=== PATIENT | female | born 1950 | race Caucasian/White ===

== ENCOUNTER → 2020-05-30 08:23 | Outpatient (CLI) | payer OTHER, SELFPAY ==
--- NOTE | ~2020-05-30 | MMUS_ITS ---
EXAMINATION: MM diagnostic zurdo BI w noreen, US breast LT complete HISTORY: Probable benign right breast calcifications, six-month follow-up. Screening of left breast. TECHNIQUE: Whole ML, MLO and cc 3-D tomosynthesis images of both breasts and spot Tomosynthesis image s of the right breast were performed and synthetic 2-D images were generated. CAD analysis was submit rex and interpreted. High resolution breast ultrasound was performed. COMPARISON: 10/30/2019 diagnostic right digital mammogram 04/09/2019 diagnostic bilateral digital mammogram 08/24/2018 diagnostic right digital mammogram BREAST PARENCHYMAL COMPOSITION: There are scattered areas of fibroglandular density. FINDINGS: MAMMOGRAPHIC FINDINGS: No suspicious mass or suspicious calcification is noted on the right. No skin thickening or retractio n is evident. On the left there is suggestion of new approximately 4 mm density in the central lower breast on MLO view. ULTRASOUND: There is a 6 x 6.5 x 4 mm multiloculated cystic lesion without internal vascularity or suspicious sha dowing in the subareolar area. This has benign sonographic features. There is an approximately 1.5 x 2 mm probable cyst at 8:00 0.5 cm from nipple. No suspicious mass or shadowing is evident. IMPRESSION: 1. Probable benign findings 2. 6 month diagnostic left mammogram and left breast ultrasound follow-up are recommended. BI-RADS category 3, probably benign findings. Reviewed, dictated and finalized at location A. IMPRESSION: 1. Probable benign findings 2. 6 month diagnostic left mammogram and left breast ultrasound follow-up are r ecommended. BI-RADS category 3, probably benign findings.
== END ==
PROVIDERS: PCP Family Medicine; Visit Provider Family Medicine
DX: R92.8 Other abnormal and inconclusive findings on diagnostic imaging of breast (principal)
CPT/HCPCS: 76641; 77062; 77066; G0279

== ENCOUNTER → 2021-01-30 09:00 | Outpatient (CLI) | payer OTHER, SELFPAY ==
--- NOTE | ~2021-01-30 | CT_ITS ---
EXAMINATION: CT lung screening DATE: 01/30/2021 09:14 INDICATION: Z72.0 - Tobacco use TECHNIQUE: Computed tomography (CT) of the chest was performed without intravenous contrast. Addition al 3D reconstructions utilizing coronal maximum intensity projection (MIP) were performed. Automated exposure control and iterative reconstruction technique were employed. The dose-length product was 54 .66 mGy-cm. COMPARISON: None FINDINGS: Mild emphysema. . Few small calcified pulmonary nodules consistent with old granulomatous disease. 4 mm noncalcified nodule at the superomedial lingula. Mild peripheral reticular opacities with lower jaye ng predominant which could represent atelectasis, minimal pulmonary edema or chronic interstitial fib rosis in either nonspecific interstitial pneumonia (NSIP) or usual interstitial pneumonia (UIP) patte rn. Heart size is normal. Atherosclerotic coronary artery calcifications and aortic valve calcificati on. No pericardial or pleural effusion. A few calcified right hilar and mediastinal lymph nodes along with a small hepatic calcification, all consistent with old granulomatous disease. No pathologically enlarged thoracic lymphadenopathy. Atherosclerotic thoracic aorta is normal in caliber. Chronic T12 compression fracture with one third anterior vertebral body height loss. Mild thoracic spondylosis. IMPRESSION: 1. Lung-RADS category 2: Benign appearance or behavior. Continue annual screening with noncontrast lo w-dose chest CT in 12 months. 2. Mild emphysema. 3. Mild peripheral reticular opacities with basilar predominance which could represent mild atelectas is, pulmonary edema or chronic interstitial fibrosis. Reviewed, dictated and finalized at location A. IMPRESSION: 1. Lung-RADS category 2: Benign appearance or behavior. Continue annual screeni ng with noncontrast low-dose chest CT in 12 months. 2. Mild emphysema. 3. Mild peripheral reticular opacities with basilar predominance which could re present mild atelectasis, pulmonary edema or chronic interstitial fibrosis.
== END ==
PROVIDERS: Visit Provider Family Medicine
DX: Z85.3 Personal history of malignant neoplasm of breast (principal); J43.9 Emphysema, unspecified; R91.8 Other nonspecific abnormal finding of lung field; Z87.891 Personal history of nicotine dependence
CPT/HCPCS: 71271

== ENCOUNTER → 2021-02-02 08:41 | Outpatient (CLI) | payer OTHER, SELFPAY ==
--- NOTE | ~2021-02-02 | MMUS_ITS ---
EXAMINATION: MM diagnostic zurdo BI w noreen, US breast LT limited HISTORY: Screening of right breast. Six-month follow-up of 05/30/2020 left breast diagnostic mammograp hic and sonographic findings TECHNIQUE: Bilateral ML, MLO and craniocaudal full field and left spot 3-D tomosynthesis images were performed and synthetic 2-D images were generated. CAD analysis was submitted and interpreted. High r esolution targeted left breast ultrasound was performed. COMPARISON: 05/30/2020 bilateral diagnostic digital mammogram and complete left breast ultrasound BREAST PARENCHYMAL COMPOSITION: There are scattered areas of fibroglandular density. FINDINGS: MAMMOGRAPHIC FINDINGS: There is stable fibroglandular asymmetry. No interval suspicious mass or architectural distortion, malignant calcification, skin thickening or retraction since prior examinations is evident. ULTRASOUND: The previously reported subareolar multiloculated cystic lesion is no longer evident. Diminished size of sonolucency at 8:00 0.5 cm from nipple, currently measuring approximately 1 x 1.4 mm dimension. IMPRESSION: 1. No mammographic evidence of malignancy 2. Routine annual mammographic screening is recommended. BI-RADS Category 2: Benign finding(s). Reviewed, dictated and finalized at location A. IMPRESSION: 1. No mammographic evidence of malignancy 2. Routine annual mammographic screening is recommended. BI-RADS Category 2: Benign finding(s).
== END ==
PROVIDERS: PCP Family Medicine; Visit Provider Physician Assistant
DX: R92.8 Other abnormal and inconclusive findings on diagnostic imaging of breast (principal)
CPT/HCPCS: 76642; 77062; 77066; G0279

== ENCOUNTER 2021-05-18 01:20 | Day surgery (SDC) | payer OTHER, SELFPAY ==
[2021-04-29 14:39] VITALS: BMI 23.0
[2021-05-18 10:12] VITALS: BP 152/68; PULSE 82; RESP 17; TEMP 36.2; O2SAT 96; BMI 24.7
[2021-05-18] MEDS: LACTATED RINGERS 1,000 ML 150 ML IV CONT (10:15)
--- NOTE | 2021-05-18 10:42 | WPDANESEPPF ---
Anes - Initial Pre Proc Eval Procedure: Operation Date: 05/18/21 11:45 Proposed Procedures p Screening Colonoscopy - Zack Plascencia MD Date/Time: 05/18/21 10:42 Surgeon: Zack Plascencia MD Pre Op Diagnosis: hx of colon polyps Patient Data Age: 70 Gender: F Height: 1.6 m Weight: 63.2 kg Last Vital Signs Temp 97.2 F L 05/18/21 10:12 Pulse 82 05/18/21 10:12 Resp 17 05/18/21 10:12 BP 152/68 H 05/18/21 10:12 Pulse Ox 96 05/18/21 10:12 Allergies Allergy/AdvReac Type Severity Reaction Status Date / Time codeine AdvReac Mild NAUSEA/VOMI Verified 05/18/21 10:11 TING Home Medications Medication Instructions Recorded Confirmed Type tizanidine 2 mg tablet 2 mg PO TID PRN #60 tablet 10/27/20 05/18/21 Rx lisinopril 10 mg tablet 10 mg PO DAILY #90 tablet 04/17/21 05/18/21 Rx Patient hx anesthesia problems: none Family hx anesthesia problems: none PMFSH Past Medical History Medical History (Updated 01/23/21 @ 21:53 by Mery Cantrell MD) Benign essential HTN Breast CA Breast cancer screening Family history of radiation therapy YOBANI (generalized anxiety disorder) Hx antineoplastic chemotherapy Hx of adenomatous polyp of colon Osteoporosis Shingles rash Surgical History Surgical History H/O lumpectomy Hx of colonoscopy with polypectomy Family History Family History Mother Patient's mother is in good health Hypertension Family history of malignant neoplasm of brain Sibling Patient's sister is in good health Patient's brother is in good health Family history of alcoholism, Onset Age: 53 Family history of dementia Family history of throat cancer Social History Social History (Updated 01/23/21 @ 10:37 by Clarita Carlin) Social History: Smoking packs per day: 1 Smoking cigarettes per day: 20.0 Years smoked: 40 Smoking pack-years: 40.00 Smoking status: Current every day smoker Tobacco type: cigarettes Second hand tobacco smoke exposure: Yes Additional smoking assessment comments: Pt only smokes a pack a week. Alcohol intake: current Alcohol use details: OCCATIONALLY Substance use: never Substance use type: does not use Living arrangements: with family Gender identity (if verbalized by the patient): Female Spiritual care concerns: No Anes - Eval Final PreProcedure Day of Procedure 05/18/21 10:42 Patient weight: normal Heart: regular rate and rhythm Lungs: clear to auscultation Airway: Mallampati scale class II Neurological: alert and oriented Last oral intake: >/= 8 hours ASA classification: III Emergent: no Anesthetic plan: proceed Anesthesia type and monitoring: general GIVS and standard monitoring Informed Consent: The patient's anesthetic plan and its attendant risks and benefits were discussed with the patient/family/POA. Questions were solicited and answers provided to the satisfaction of the patient/family/POA.
--- NOTE | 2021-05-18 10:59 | PM.HPGS ---
History of Present Illness History of Present Illness Consent: Risks, benefits, and alternatives have been discussed and questions answered. Patient agrees to proceed with procedure. Chief complaint: hx of colon polyps Narrative: Medina Lucas is a 70 year old female with colon polyps 2019, she is due to have another colonoscopy Review of Systems Constitutional: Constitutional: Denies headache(s) and Denies weakness Eyes: Eyes: Denies blurry vision ENT: Reports Normal hearing present, Denies headache(s) and Denies neck pain Cardiovascular: Cardiovascular: Denies chest pain and Denies dyspnea Respiratory: Respiratory: Denies dyspnea Gastrointestinal: Gastrointestinal: Reports no additional gastrointestinal complaints Genitourinary: Genitourinary: Denies dysuria Musculoskeletal: Musculoskeletal: Denies neck pain Integumentary/Breasts: Skin/Breast: Denies dry skin Neurologic: Reports Normal hearing present, Denies headache(s) and Denies weakness Psychiatric: Psychiatric: Denies anxiety Endocrine: Endocrine: Denies change in body appearance Hematologic/Lymphatic: Hematologic/Lymphatic: Denies easy bleeding Allergic/Immunologic: Allergic/Immunologic: Denies urticaria PMFSH Past Medical History Medical History (Updated 01/23/21 @ 21:53 by Mery Cantrell MD) Benign essential HTN Breast CA Breast cancer screening Family history of radiation therapy YOBANI (generalized anxiety disorder) Hx antineoplastic chemotherapy Hx of adenomatous polyp of colon Osteoporosis Shingles rash Surgical History Surgical History H/O lumpectomy Hx of colonoscopy with polypectomy Family History Family History Mother Patient's mother is in good health Hypertension Family history of malignant neoplasm of brain Sibling Patient's sister is in good health Patient's brother is in good health Family history of alcoholism, Onset Age: 53 Family history of dementia Family history of throat cancer Social History Social History (Updated 01/23/21 @ 10:37 by Clarita Carlin) Social History: Smoking packs per day: 1 Smoking cigarettes per day: 20.0 Years smoked: 40 Smoking pack-years: 40.00 Smoking status: Current every day smoker Tobacco type: cigarettes Second hand tobacco smoke exposure: Yes Additional smoking assessment comments: Pt only smokes a pack a week. Alcohol intake: current Alcohol use details: OCCATIONALLY Substance use: never Substance use type: does not use Living arrangements: with family Gender identity (if verbalized by the patient): Female Spiritual care concerns: No Meds Home Medications and Allergies Home Medications Medication Instructions Recorded Confirmed Type tizanidine 2 mg tablet 2 mg PO TID PRN #60 tablet 10/27/20 05/18/21 Rx lisinopril 10 mg tablet 10 mg PO DAILY #90 tablet 04/17/21 05/18/21 Rx Allergies Allergy/AdvReac Type Severity Reaction Status Date / Time codeine AdvReac Mild NAUSEA/VOMI Verified 05/18/21 10:11 TING Vital Signs Vital Signs - 24 hr 05/18/21 10:12 Temperature 97.2 F L Pulse Rate 82 Respiratory Rate 17 Blood Pressure 152/68 H Pulse Oximetry 96 Exam Const: General: comfortable and no acute distress HENMT: General nose exam: Normal nares present Eyes: General: appearance normal, both eyes and all related structures Neck: Neck: no JVD Resp: Auscultation: clear to auscultation bilaterally Cardio: Rate: regular rate Rhythm: regular rhythm GI: Inspection: non-distended GI Palp: Yes Soft to palpation Skin: General skin exam: normal color Neuro: General: gait normal Speech: normal speech Extrem: General: normal to inspection Psych: Mental Status: mental status grossly normal Assessment and Plan Assessment and plan (1) Colon polyp: Code(s): K63.5 -
[2021-05-18 11:21] VITALS: BP 92/61; PULSE 66; RESP 11; O2SAT 97
[2021-05-18 11:31] VITALS: BP 94/59; PULSE 66; RESP 12; O2SAT 95
[2021-05-18 11:41] VITALS: BP 145/63; PULSE 61; RESP 17; O2SAT 99
== END 2021-05-18 11:57 | disposition home or self-care (01) ==
PROVIDERS: PCP Family Medicine; Visit Provider Internal Medicine Gastroenterology
PROC: 0DJD8ZZ Inspection of Lower Intestinal Tract, Via Natural or Artificial Opening Endoscopic (ICD-10-PCS; CPT 45378; principal; 2021-05-18 11:45)
DX: Z12.11 Encounter for screening for malignant neoplasm of colon (principal); D12.0 Benign neoplasm of cecum; K64.8 Other hemorrhoids; I10 Essential (primary) hypertension; M81.0 Age-related osteoporosis without current pathological fracture; F41.1 Generalized anxiety disorder; F17.210 Nicotine dependence, cigarettes, uncomplicated; Z85.3 Personal history of malignant neoplasm of breast
CPT/HCPCS: 45385; 88305; J2704; J7120

== ENCOUNTER 2021-07-24 08:36 | Outpatient (CLI) | payer OTHER, SELFPAY ==
--- NOTE | ~2021-07-24 | XR_ITS ---
XR knee LT 3V 07/24/2021 08:59 Indication: Left knee pain Procedure: 3 views left knee Comparison: No prior studies for comparison. Findings: There is mild tricompartment osteoarthritis. No fracture or traumatic malalignment. There a re vascular calcifications. No focal soft tissue abnormality. No joint effusion. No foreign bodies. Impression: 1: Mild osteoarthritis of the left knee. Reviewed, dictated and finalized at location A. Impression: 1: Mild osteoarthritis of the left knee.
== END 2021-07-24 08:37 | disposition home or self-care (01) ==
LOC: ANHIMG 08:40
PROVIDERS: PCP Family Medicine; Visit Provider Family Medicine
DX: M17.12 Unilateral primary osteoarthritis, left knee (principal)
CPT/HCPCS: 73562

== ENCOUNTER 2021-08-07 10:28 | Outpatient (CLI) | payer OTHER, SELFPAY ==
--- NOTE | ~2021-08-07 | US_ITS ---
EXAMINATION: US carotid duplex BI DATE: 08/07/2021 11:09 INDICATION: Carotid atherosclerosis. Other specified symptoms/signs involving the circulatory system. TECHNIQUE: Grayscale, color Doppler, and pulsed Doppler images of the cervical carotid arteries were obtained. The degree of vessel stenosis is placed in one of the following categories: normal, <50%, 5 0-69%, >=70% but less than near-occlusion, near-occlusion, or total occlusion. Note that percent sten osis relative to normal distal artery lumen diameter is indirectly measured from velocity measurement s as described by Chance, et al. Radiology 2003; 229:340-346. COMPARISON: None. FINDINGS: RIGHT: The right common carotid artery (CCA) peak systolic velocity (PSV) is 89 cm/s. The right internal car otid artery (ICA) PSV is 104 cm/s. The right ICA end-diastolic velocity (EDV) is 22 cm/s. The right I CA/CCA PSV ratio is 1.2. Grayscale and color Doppler images yield an estimate of <50% diameter reduct ion from plaque in the ICA. The external carotid artery (ECA) PSV is 112 cm/s. There is antegrade nathaniel w in the right vertebral artery. LEFT: The left CCA PSV is 110 cm/s. The left ICA PSV is 63 cm/s. The left ICA EDV is 27 cm/s. The left ICA/ CCA PSV ratio is 0.6. Grayscale and color Doppler images yield an estimate of <50% diameter reduction from plaque in the ICA. The ECA PSV is 70 cm/s. There is antegrade flow in the left vertebral artery . IMPRESSION: 1. <50% stenosis in the right internal carotid artery. 2. <50% stenosis in the left internal carotid artery. Reviewed, dictated and finalized at location A.
== END 2021-08-07 10:29 | disposition home or self-care (01) ==
LOC: ANHIMG 10:33
PROVIDERS: PCP Family Medicine; Visit Provider Family Medicine
DX: R09.89 Other specified symptoms and signs involving the circulatory and respiratory systems (principal); I65.23 Occlusion and stenosis of bilateral carotid arteries
CPT/HCPCS: 93880

== ENCOUNTER 2021-08-28 11:04 | Outpatient (CLI) | payer OTHER, SELFPAY ==
--- NOTE | 2021-08-31 13:25 | WPDPFTINT ---
PFT Procedure Performed PFT Procedure Performed Plethysmography (Lung Vol) Diffusing Cap (DLCO) Flow Vol Loop Spirometry w/o Bronchodil PFT Interpretation Lung volumes were measured with the body plethysmography method. The lung volumes are unremarkable. Spirometry showed normal FVC, normal FEV1, diminished mid expiratory flow rates at 35% predicted and a diminished FEV1 to FVC ratio 59%, indicative of mild obstructive airway disease. No post bronchodilator study was carried out. The flow volume loop is consistent with obstructive airway disease. Lung diffusion capacity is moderately reduced at 52% predicted. Impression: Mild obstructive airway disease in the form of small airway disease. Moderately reduced lung diffusion capacity.
--- NOTE | 2021-09-02 14:07 | P.PCNPFT_ITS ---
PFT Procedure Performed PFT Procedure Performed Plethysmography (Lung Vol) Diffusing Cap (DLCO) Flow Vol Loop Spirometry w/o Bronchodil PFT Interpretation Lung volumes were measured with the body plethysmography method. The lung volumes are unremarkable. Spirometry showed normal FVC, normal FEV1 but diminished mid expiratory flow rates at 35% predicted consistent with small airway disease. The FEV1 FVC was also diminished at 59% predicted. Lung diffusion capacity is moderately reduced at 52% predicted. No post b ronchodilator study carried out. The flow volume loop is also consistent with small airway disease. Impression: Mild obstructive airway disease in the form of small airway disease. Moderately reduced lung diffusion capacity.
== END 2021-08-28 11:05 | disposition home or self-care (01) ==
LOC: ANHPFT 11:04
PROVIDERS: PCP Family Medicine; Visit Provider Family Medicine
DX: J84.9 Interstitial pulmonary disease, unspecified (principal); Z72.0 Tobacco use; R94.2 Abnormal results of pulmonary function studies
CPT/HCPCS: 94375; 94726; 94729

== ENCOUNTER → 2022-04-27 15:30 | Outpatient (CLI) | payer OTHER, SELFPAY ==
--- NOTE | ~2022-04-27 | MM_ITS ---
EXAMINATION: MM screening [facility] BI w noreen HISTORY: Screening TECHNIQUE: Craniocaudal and mediolateral oblique 3-D tomosynthesis images were obtained and synthetic 2-D images were generated. CAD analysis was submitted and interpreted. COMPARISON: Comparison to multiple prior studies sequentially, with oldest reviewed study dated 08/01. BREAST PARENCHYMAL COMPOSITION: There are scattered areas of fibroglandular density. FINDINGS: There is no evidence of suspicious mass, calcification, or architectural distortion to sugg est malignancy in either breast. There has been no suspicious interval change. IMPRESSION: 1. No mammographic evidence of malignancy. 2. Recommend routine screening mammography in one year. BI-RADS Category 1: Negative Reviewed, dictated and finalized at location A.
== END ==
PROVIDERS: PCP Family Medicine; Visit Provider Family Medicine
DX: Z12.31 Encounter for screening mammogram for malignant neoplasm of breast (principal)
CPT/HCPCS: 77063; 77067

== ENCOUNTER 2022-07-26 08:08 | Outpatient (CLI) | payer OTHER, SELFPAY ==
--- NOTE | ~2022-07-26 | US_ITS ---
EXAMINATION: US venous doppler [facility] DATE: 07/26/2022 09:35 INDICATION: Bilateral lower limb pain TECHNIQUE: Garrison scale images without and with compression and Doppler images of the bilateral lower e xtremity veins were obtained. COMPARISON: None FINDINGS: The right common femoral vein, profunda femoral vein, femoral vein, popliteal vein, peroneal trunk, p osterior tibial veins, and greater saphenous vein are patent. The left common femoral vein, profunda femoral vein, femoral vein, popliteal vein, peroneal trunk, po sterior tibial veins, and greater saphenous vein are patent. IMPRESSION: 1. Patent bilateral lower extremity veins. No evidence of deep venous thrombosis. Reviewed, dictated and finalized at location A. IMPRESSION: 1. Patent bilateral lower extremity veins. No evidence of deep venous thrombosi s.
--- NOTE | ~2022-07-26 | CT_ITS ---
EXAMINATION: CT lung screening DATE: 07/26/2022 08:32 INDICATION: Lung cancer screening. History of tobacco dependence. TECHNIQUE: Computed tomography (CT) of the chest was performed without intravenous contrast. The dose -length product was 67.93 mGy-cm. Automated exposure control and iterative reconstruction technique w ere employed. Automated exposure control and iterative reconstruction technique were employed. COMPARISON: CT dated 01/30/2021 FINDINGS: Stable 4 mm lingular nodule. There are a few scattered calcified granulomas. There is emphy sema. There is chronic interstitial lung disease with a pattern consistent with nonspecific interstit ial pneumonia. No new pulmonary nodules or masses. No endobronchial lesions. No pneumothorax. No foca l airspace consolidation. There are calcified mediastinal lymph nodes, consistent with chronic granul omatous disease. There is a chronic wedge compression deformity of T12. There is atherosclerosis of t he aorta and coronary arteries. IMPRESSION: 1. Lung-RADS category 2: Benign appearance or behavior. Continue annual screening with noncontrast lo w-dose chest CT in 12 months. Reviewed, dictated and finalized at location B. IMPRESSION: 1. Lung-RADS category 2: Benign appearance or behavior. Continue annual screeni ng with noncontrast low-dose chest CT in 12 months.
--- NOTE | ~2022-07-26 | US_ITS ---
US art doppler w press LE BI INDICATION: Leg pain TECHNIQUE: Segmental pressures and plethysmographic and Doppler waveforms of the brachial and lower e xtremity arteries were obtained. COMPARISON: None. FINDINGS: Right and left brachial artery pressures of 133 mm Hg and 132 mm Hg, respectively, are concordant (no rmal difference <= 30 mmHg). The right ankle-brachial index (BYRON) is 1.06 (normal >= 0.9-1.0). The right great toe-brachial index (TBI) is 0.72 (normal >= 0.60). The left BYRON is 1.11. The left TBI is 0.71. IMPRESSION: 1. Normal bilateral ankle and toe brachial indices.. Reviewed, dictated and finalized at location B.
== END 2022-07-26 08:09 | disposition home or self-care (01) ==
PROVIDERS: PCP Family Medicine; Visit Provider Nurse Practitioner Gerontology
DX: Z12.2 Encounter for screening for malignant neoplasm of respiratory organs (principal); Z87.891 Personal history of nicotine dependence; M79.89 Other specified soft tissue disorders
CPT/HCPCS: 71271; 93923; 93970

== ENCOUNTER → 2022-08-09 14:56 | Outpatient (CLI) | payer OTHER, SELFPAY ==
--- NOTE | ~2022-08-09 | DEXA_ITS ---
Bone Density Report Name: DEBBIE CHASE Age: 71 Sex: Female Ethnicity: White Date of : 1950 Indication: postmenopausal; screening for osteoporosis; height loss; prior fracture; Referring Provider: FISH NGUYỄN Study: Bone densitometry was performed. Exam Date: August 09, 2022 Accession number: [id number] Bone Density: Region BMD T-score Z-score Classification AP Spine (L1-L4) 0.807 -2.2 0.1 Osteopenia Femoral Neck (Left) 0.492 -3.2 -1.3 Osteoporosis Total Hip (Left) 0.633 -2.5 -0.9 Osteoporosis Femoral Neck (Right) 0.594 -2.3 -0.3 Osteopenia Total Hip (Right) 0.667 -2.3 -0.6 Osteopenia Total Hip Mean 0.650 -2.4 -0.8 Osteopenia World Health Organization criteria for BMD impression classify patients as: Normal (T-score at or above -1.0), Osteopenia (T-score between -1.0 and -2.5), or Osteoporosis (T-score at or below -2.5). 10-year Fracture Risk: FRAX not reported because: Some T-score for Spine Total or Hip Total or Femoral Neck at or below -2.5 Clinical Information Provided by Patient: Has had a low trauma fracture Smokes Has used the following medications: Vitamin D, Calcium Patient maximum height was 64.5 Menopause Age: 36 No regular weight bearing exercise Does not regularly consume dairy products Drinks caffeinated beverages Onset of menses at age 15 Number of children 1 Impression: The patient has established osteoporosis, based on the Left Femoral Neck T-score and the existence of a prior fracture. The patient has risk factors, including: smoking, previous fracture. Discussion: HIGH RISK OF FRACTURE. BONE DENSITY IS UNDESIRABLY LOW AT ONE OR MORE SKELETAL SITES, CONSISTENT WITH POSTMENOPAUSAL OSTEOPOROSIS. This patient's lowest T-score, in a patient who has previously fractured, meets the World Health Organization's (WHO) criteria for severe osteoporosis. In untreated patients, the risk of osteoporotic fracture increases approximately two-fold for each 1.0 SD decrease in T-score. Low bone density is not the only risk factor for fracture; also consider factors such as patient's age, frailty or poor health, risk of falling, risk of injury, previous osteoporotic fracture, family history of osteoporosis, cigarette smoking, low body weight, etc. Not everyone with low bone mineral density has osteoporosis; osteomalacia and other metabolic bone disorders should also be considered. Patients who have osteoporosis should be evaluated for specific diseases and conditions (secondary causes) that may cause or contribute to bone loss. The [place] [employer]ocrinologists (AACE) and National Osteoporosis Foundation (NOF) recommend pharmacologic intervention for all postmenopausal women whose T-score is in this range. The patient should follow a healthful lifestyle (good nutrition with
== END ==
PROVIDERS: PCP Family Medicine; Visit Provider Nurse Practitioner Gerontology
DX: Z78.0 Asymptomatic menopausal state (principal); M85.88 Other specified disorders of bone density and structure, other site; M81.0 Age-related osteoporosis without current pathological fracture; M85.851 Other specified disorders of bone density and structure, right thigh
CPT/HCPCS: 77080

== ENCOUNTER 2022-09-28 08:25 | Outpatient (CLI) | payer OTHER, SELFPAY ==
[2022-09-28 09:27] LABS: Creatine Kinase 189 U/L (30-135)
[2022-09-28 09:30] LABS: Rheumatoid Factor < 8.6 IU/ML (<12)
[2022-09-30 13:11] LABS: ANA Cascade Screen Negative (Negative)
[2022-09-30 21:13] LABS: Anti Cyclic Citrullinated Pept <16 Units (<20)
[2022-10-02 04:07] LABS: Aldolase 5.1 U/L (<=8.1)
[2022-10-02 21:12] LABS: ANCA Screen Negative (Negative)
== END 2022-09-28 08:26 | disposition home or self-care (01) ==
LOC: ANHLAB 08:27
PROVIDERS: PCP Family Medicine; Visit Provider Internal Medicine Pulmonary Disease
DX: J84.9 Interstitial pulmonary disease, unspecified (principal); J98.4 Other disorders of lung
CPT/HCPCS: 36415; 82085; 82104; 82550; 86036; 86038; 86200; 86331; 86430; 86606; 86609

== ENCOUNTER 2022-10-29 07:53 | Outpatient (CLI) | payer OTHER, SELFPAY ==
--- NOTE | 2022-10-29 12:54 | WPDPFTINT ---
PFT Procedure Performed PFT Procedure Performed Spirometry with Pre/Post Bronchodilator Plethysmography (Lung Vol) Diffusing Cap (DLCO) Flow Vol Loop PFT Interpretation Lung volumes were measured with the body plethysmography method. Lung volumes are unremarkable. Spirometry showed normal FVC, normal FEV1 but diminished mid expiratory flow rates at 38% predicted which in conjunction with diminished FEV1 to FVC ratio of 60% is indicative of mild obstructive airway disease. Following administration of a bronchodilator there was no significant increase in expiratory flow rates. Lung diffusion capacity is moderately reduced at 54% predicted. Flow volume loop is consistent with obstructive airway disease. Impression: Mild obstructive airway disease primarily in the form of small airway disease with no response to bronchodilators on this testing. Moderately reduced lung diffusion capacity.
--- NOTE | 2022-10-29 12:56 | WPDSIXMINUTE ---
Six Minute Walk Procedure Procedure Performed Pulmonary Stress Test (6 min walk) Six Minute Walk Six Minute Walk: this 6 minute walk test was carried out with the patient breathing ambient air. The pre-walk oxyhemoglobin saturation was 95%. The patient walked approximately 274 m with no stops during testing. During the walk the oxyhemoglobin saturation remained 90% or higher. The perceived dyspnea on the Luz Maria scale at baseline was 0 and increased to 4 at the end of testing. Impression: No evidence of clinically significant oxyhemoglobin desaturation on this testing.
== END 2022-10-29 07:54 | disposition home or self-care (01) ==
PROVIDERS: PCP Family Medicine; Visit Provider Internal Medicine Pulmonary Disease
DX: R06.00 Dyspnea, unspecified (principal); J40 Bronchitis, not specified as acute or chronic; Z72.0 Tobacco use; R94.2 Abnormal results of pulmonary function studies
CPT/HCPCS: 94060; 94618; 94726; 94729

== ENCOUNTER 2023-06-07 07:56 | Outpatient (CLI) | payer OTHER, SELFPAY ==
--- NOTE | ~2023-06-07 | CT_ITS ---
EXAMINATION:CT chest high resolution wo sd DATE: 06/07/2023 09:37 INDICATION: Interstitial lung disease. TECHNIQUE: Computed tomography (CT) of the chest was performed without intravenous contrast. Automate d exposure control and iterative reconstruction technique were employed. The dose-length product (DLP ) was 122.66 mGy-cm. COMPARISON: Chest CT 07/26/2022 FINDINGS: There is mild scarring at the lung apices. There is moderate emphysema. There is peripheral septal thickening in the lungs with multiple areas of honeycombing. There is a 1.4 cm nodule in righ t upper lobe. There is a new 6 mm nodule in right middle lobe. A calcified right lung nodule and calc ified right hilar and mediastinal lymph nodes are consistent with old granulomatous disease. No pleur al effusion. The heart size is normal. There are coronary artery calcifications. No pericardial effus ion. There is mild thoracic spondylosis. There is a chronic compression fracture of T12. IMPRESSION: 1. Worsened 1.4 cm nodule in right lung upper lobe suspicious for primary bronchogenic carcinoma. CT- guided biopsy is recommended. I called this result to Rosetta Palomino. 2. Diffuse lung disease, likely a combination of moderate emphysema and chronic interstitial lung dis ease in a pattern of usual interstitial pneumonia (UIP). Reviewed, dictated and finalized at location A. IMPRESSION: 1. Worsened 1.4 cm nodule in right lung upper lobe suspicious for primary bronc hogenic carcinoma. CT-guided biopsy is recommended. I called this result to Brigida Palomino. 2. Diffuse lung disease, likely a combination of moderate emphysema and chronic interstitial lung disease in a pattern of usual interstitial pneumonia (UIP).
--- NOTE | 2023-06-08 11:47 | P.PCNPFT_ITS ---
PFT Procedure Performed PFT Procedure Performed Spirometry with Pre/Post Bronchodilator Plethysmography (Lung Vol) Diffusing Cap (DLCO) Flow Vol Loop PFT Interpretation DOS: 06/07/2023 REQUESTING: Fahad George MD REASON FOR TESTING: dyspnea PULMONARY FUNCTION TESTS Repeatability of pre-bronchodilator FEV1 is Grade B. Repeatability of spirometry FEV1 post bronchodilator is Grade A. Spirometry: Pre bronchodilator FEV1 is 1.59 L, 75% predicted, low end of normal. Pre bronchodilator FVC is 2.75 L, 99%, normal. FEV1/FVC is 58%, decreased, consistent with airflow obstruction. After bronchodilator there is a 6% increase in the FEV1, 1.68 L, not statistically significant. There is no c hange in the FVC. Lung volumes: Total lung capacity 4.97 L, 98%, normal. Residual volume 2.22 L, 99%, normal. RV /TLC is 45%, normal. Airway resistance is increased. Diffusion: DLCO is 10.2, 50%, moderately reduced. DLCO /VA is 2.53, 60%, mildly reduced. There is mild correction for alveolar volume. Flow volume loop: There is mild coving of the expiratory limb. IMPRESSION: There is a mild obstructive ventilatory impairment without significant response to bronchodilator, normal lung volumes, moderate diffusion impairment. Lack of response to bronchodilator should not preclude use if clinically indicated. Dina Berry MD
== END 2023-06-07 07:57 | disposition home or self-care (01) ==
PROVIDERS: PCP Family Medicine; Visit Provider Internal Medicine Pulmonary Disease
DX: J84.9 Interstitial pulmonary disease, unspecified (principal); R94.2 Abnormal results of pulmonary function studies; R91.1 Solitary pulmonary nodule
CPT/HCPCS: 71250; 94060; 94726; 94729

== ENCOUNTER 2023-06-16 08:49 | Outpatient (CLI) | payer OTHER, SELFPAY ==
--- NOTE | 2023-06-10 14:03 | PC.NURSE ---
Pre Radiology instructions Report to the [facility] on date 06/16/23 at time __0900 for procedure Time: _1100___ YOU MAY BE MONITORED AT HOSPITAL FOR UP TO 4 HOURS AFTER YOUR PROCEDURE. A visitor will be allowed to accompany the patient into the hospital. You and your visitor will be asked to self-screen and do not enter if you have any COVID symptoms. A mask is OPTIONAL within the hospital. Patients are to have no food or drink 6 hours prior to procedure time Driving will be restricted after the procedure, you must have a person to drive you home. Labs will be drawn in preop area and once reviewed, you will be taken to radiology area for procedure. When the procedure is completed, you will be taken to outpatient where you will be monitored for several hours. You may have one visitor in this area. Other than holding anti-coagulants, patient may take other medication(s) as scheduled. Prior to your appointment date patients are instructed to hold anti-coagulants after discussing with ordering provider to stop. If unable to discontinue anti-coagulants please notify radiologist. ? No aspirin or warfarin (Coumadin) for 7 days prior to the procedure. ? No clopidogrel (Plavix), ticagrelor (Brilinta), prasugrel (Effient) or dabigatran (Pradaxa) for 5 days prior to the procedure. ? No rivaroxaban (Xarelto), apixaban (Eliquis), dipyridamole (Aggrenox or Persantine) or cilostazol (Pletal) for 2 days prior to the procedure. Medications to discontinue per physician: __NONE Date to take last dose: Please leave all valuables, including medications, at home the day of procedure. The hospital will not accept responsibility for valuables. Wear comfortable, loose fitting clothing.? Follow any additional instructions given to you from ordering provider. Telephone instructions given to __PATIENT and asked if any additional questions and then verbalized understanding. Patient advised to call scheduling provider office or registration scheduling [phone] if any additional questions.
[2023-06-10 14:09] VITALS: BMI 23.1
[2023-06-16] VITALS (10 sets, daily range): BP systolic 109–128; BP diastolic 42–64; PULSE 56–73; RESP 16–18; TEMP 36.4; O2SAT 94–100; BMI 23.6
--- NOTE | ~2023-06-16 | CT_ITS ---
EXAMINATION: CT biopsy lung w/imaging DATE: 06/16/2023 11:21 INDICATION: Solitary pulmonary nodule. TECHNIQUE: The procedure including the risks, benefits, and alternatives and possibility of chest tub e placement were discussed with the patient. Risks discussed included infection, approximately 1/20 r isk of symptomatic hemorrhage beyond mild hemoptysis, approximately 1/3 risk of pneumothorax, approxi mately 1/10 risk of pneumothorax severe enough to warrant chest tube placement, and rarely . The patient understood the risks and agreed to proceed. The patient was placed supine. The skin overlyi ng the right lung was prepped and draped in sterile fashion. Anesthetic was administered with 1% lid ocaine subcutaneously. A 19 gauge outer needle was advanced under CT guidance into the lung. The pat ient developed a small pneumothorax. The needle was removed and the entry site was cleaned and dresse d. The mA was adjusted according to patient size. Iterative reconstruction technique was employed. Th e dose-length product was 170.64 mGy-cm. FINDINGS: CT images demonstrate the outer needle tip in the right lung. There is a 1.9 cm nodule in r ight upper lobe. There is a small right pneumothorax. IMPRESSION: 1. Failed CT-guided right lung biopsy. 2. Small right pneumothorax. 3. 1.9 cm nodule in right lung upper lobe suspicious for primary bronchogenic carcinoma. Repeat CT-gu ided biopsy is recommended next week. Reviewed, dictated and finalized at location A. IMPRESSION: 1. Failed CT-guided right lung biopsy. 2. Small right pneumothorax. 3. 1.9 cm nodule in right lung upper lobe suspicious for primary bronchogenic c arcinoma. Repeat CT-guided biopsy is recommended next week.
--- NOTE | ~2023-06-16 | XR_ITS ---
EXAMINATION: XR chest 1V portable DATE: 06/16/2023 12:17 INDICATION: Right lung nodule status post percutaneous biopsy. TECHNIQUE: A single frontal view of the chest was obtained. COMPARISON: Chest single view at 11:16 AM FINDINGS: There is a diffuse interstitial pattern in the lungs with a peripheral predominance. A calc ified right lung nodule and calcified right hilar and mediastinal lymph nodes are consistent with old granulomatous disease. No pleural effusion. There is a small right pneumothorax. The heart size is n ormal. IMPRESSION: 1. Stable small right pneumothorax. 2. Diffuse lung disease, likely a combination of emphysema and chronic interstitial lung disease. Reviewed, dictated and finalized at location A. IMPRESSION: 1. Stable small right pneumothorax. 2. Diffuse lung disease, likely a combination of emphysema and chronic intersti tial lung disease.
--- NOTE | ~2023-06-16 | XR_ITS ---
EXAMINATION: XR chest 1V DATE: 06/16/2023 11:20 INDICATION: Right lung nodule status post percutaneous biopsy. TECHNIQUE: A single frontal view of the chest was obtained. COMPARISON: Chest 2 views 05/19/2007, chest CT 06/07/2023 FINDINGS: There is a peripheral interstitial pattern in the lungs. A calcified right lung nodule and calcified right hilar and mediastinal lymph nodes are consistent with old adenomatous disease. No ple ural effusion. There is a small right pneumothorax. The heart size is normal. IMPRESSION: 1. Small right pneumothorax. 2. Diffuse lung disease, likely a combination of emphysema and chronic interstitial lung disease. Reviewed, dictated and finalized at location A. IMPRESSION: 1. Small right pneumothorax. 2. Diffuse lung disease, likely a combination of emphysema and chronic intersti tial lung disease.
--- NOTE | ~2023-06-16 | XR_ITS ---
EXAMINATION: XR chest 1V portable DATE: 06/16/2023 14:13 INDICATION: Right lung nodule status post percutaneous biopsy. TECHNIQUE: A single frontal view of the chest was obtained. COMPARISON: Chest single view at 12:09 PM FINDINGS: There is a diffuse interstitial pattern with a peripheral predominance. There is a small ri ght pneumothorax. No pleural effusion. The heart size is normal. IMPRESSION: 1. Worsened small right pneumothorax. 2. Diffuse lung disease, likely a combination of emphysema and chronic interstitial lung disease. Reviewed, dictated and finalized at location A. IMPRESSION: 1. Worsened small right pneumothorax. 2. Diffuse lung disease, likely a combination of emphysema and chronic intersti tial lung disease.
--- NOTE | 2023-06-16 09:11 | SUR.PREOP ---
0911- Patient to pre-op chewing gum and this RN requested patient to dispose of gum. Clarified with Dr. Fagan if patient can proceed with procedure after having chewed gum since this AM. Per Dr. Fagan patient can proceed with biopsy procedure.
[2023-06-16 09:53] LABS: Mean Platelet Volume 9.8 fl (7.4-10.4); Platelet Count Result 236 k/mm3 (150-375)
[2023-06-16 10:01] LABS: Prothrombin Time 13.4 Seconds (11.1-14.7)
[2023-06-16] MEDS: ACETAMINOPHEN 500 MG TABLET PO (12:24)
== END 2023-06-16 14:25 | disposition home or self-care (01) ==
PROVIDERS: PCP Family Medicine; Referring Provider Internal Medicine Critical Care Medicine; Visit Provider Radiology Diagnostic Radiology
PROC: BB24ZZZ Computerized Tomography (CT Scan) of Bilateral Lungs (ICD-10-PCS; CPT 32408; principal; 2023-06-16 11:00)
DX: R91.1 Solitary pulmonary nodule (principal); J95.811 Postprocedural pneumothorax
CPT/HCPCS: 32408; 36415; 71045; 85049; 85610; A9270

== ENCOUNTER 2023-06-23 11:35 | Outpatient (CLI) | payer OTHER, SELFPAY ==
--- NOTE | ~2023-06-23 | XR_ITS ---
XR chest 2V 06/23/2023 12:03 Indication: Right pneumothorax Procedure: 2 view chest Comparison: No prior studies for comparison. Findings: Heart size is normal. Stable coarse interstitial infiltrates bilaterally without evidence f or honeycombing of the lung bases, consistent with chronic interstitial fibrosis. No pneumothorax enoch ntified. Heart size normal. No focal pneumonia or pleural effusion. No acute osseous abnormality. Impression: 1: No acute cardiopulmonary disease. No evidence for pneumothorax. 2: Chronic interstitial fibrosis. Reviewed, dictated and finalized at location L. Impression: 1: No acute cardiopulmonary disease. No evidence for pneumothorax. 2: Chronic interstitial fibrosis.
== END 2023-06-23 11:36 | disposition home or self-care (01) ==
PROVIDERS: PCP Family Medicine; Visit Provider Internal Medicine Pulmonary Disease
DX: R91.1 Solitary pulmonary nodule (principal); J84.10 Pulmonary fibrosis, unspecified
CPT/HCPCS: 71046

== ENCOUNTER 2023-06-29 08:45 | Outpatient (CLI) | payer OTHER, SELFPAY ==
[2023-06-27 14:01] VITALS: BMI 23.7
--- NOTE | 2023-06-27 14:01 | PC.NURSE ---
Pre Radiology instructions Report to the outpatient [facility] on date __06/29/23___ at time __0900 for procedure Time: __1100__ YOU MAY BE MONITORED AT HOSPITAL FOR UP TO 4 HOURS AFTER YOUR PROCEDURE. A visitor will be allowed to accompany the patient into the hospital. You and your visitor will be asked to self-screen and do not enter if you have any COVID symptoms. A mask is OPTIONAL within the hospital. Patients are to have no food or drink 6 hours prior to procedure time (0500 AM) Driving will be restricted after the procedure, you must have a person to drive you home. Labs will be drawn in preop area and once reviewed, you will be taken to radiology area for procedure. When the procedure is completed, you will be taken to outpatient where you will be monitored for several hours. You may have one visitor in this area. Other than holding anti-coagulants, patient may take other medication(s) as scheduled. Prior to your appointment date patients are instructed to hold anti-coagulants after discussing with ordering provider to stop. If unable to discontinue anti-coagulants please notify radiologist. ? No aspirin or warfarin (Coumadin) for 7 days prior to the procedure. ? No clopidogrel (Plavix), ticagrelor (Brilinta), prasugrel (Effient) or dabigatran (Pradaxa) for 5 days prior to the procedure. ? No rivaroxaban (Xarelto), apixaban (Eliquis), dipyridamole (Aggrenox or Persantine) or cilostazol (Pletal) for 2 days prior to the procedure. Medications to discontinue per physician: ___NONE Date to take last dose: Please leave all valuables, including medications, at home the day of procedure. The hospital will not accept responsibility for valuables. Wear comfortable, loose fitting clothing.? Follow any additional instructions given to you from ordering provider. Telephone instructions given to ___PT and asked if any additional questions and then verbalized understanding. Patient advised to call scheduling provider office or registration scheduling [phone] if any additional questions.
[2023-06-29] VITALS (10 sets, daily range): BP systolic 94–133; BP diastolic 49–68; PULSE 62–76; RESP 18–20; TEMP 36.5; O2SAT 97–99; BMI 23.3
--- NOTE | ~2023-06-29 | XR_ITS ---
EXAMINATION: XR chest 1V portable DATE: 06/29/2023 15:06 INDICATION: Status post lung biopsy TECHNIQUE: frontal view of the chest was obtained. COMPARISON: Chest radiograph dated 06/29/2023 FINDINGS: No change to perhaps slight decrease in size of a small right pneumothorax. Unchanged coarse reticula r opacities throughout the right lung with peripheral predominance and at the left lower lung zone. N o pleural effusion or left-sided pneumothorax. Interval resolution of the nodular opacity at the righ t midlung zone consistent with resolution of prior pulmonary hemorrhage at the site of the biopsied r ight upper lobe nodule. Calcified nodule right lower lung zone and calcified mediastinal lymph nodes consistent with old granulomatous disease. The cardiomediastinal silhouette is normal. IMPRESSION: 1. No change to perhaps slight decrease in size of a small iatrogenic right pneumothorax. 2. Stable appearance of chronic diffuse lung disease consistent with combination of moderate emphysem a and superimposed UIP pattern chronic interstitial lung disease. Reviewed, dictated and finalized at location A. IMPRESSION: 1. No change to perhaps slight decrease in size of a small iatrogenic right pne umothorax. 2. Stable appearance of chronic diffuse lung disease consistent with combinatio n of moderate emphysema and superimposed UIP pattern chronic interstitial lung disease.
--- NOTE | ~2023-06-29 | XR_ITS ---
EXAMINATION: XR chest 1V portable DATE: 06/29/2023 12:58 INDICATION: Status post percutaneous right lung biopsy TECHNIQUE: frontal view of the chest was obtained. COMPARISON: Chest radiograph dated 06/29/2023 at 11:59 AM FINDINGS: No significant change in a small pneumothorax along the right upper lung with small component at the right costophrenic angle. Again seen is a coarse interstitial pattern with peripheral and lower lung predominance more prominent on the right than the left consistent with combination of UIP pattern chr onic interstitial lung disease superimposed over emphysema. Ill-defined right perihilar opacity corre sponding to the biopsied nodule and small amount of surrounding pulmonary hemorrhage. No pleural effu jurgen or left-sided pneumothorax. The cardiomediastinal silhouette is normal. IMPRESSION: 1. No significant change in a small echogenic right pneumothorax post percutaneous lung biopsy. 2. Small amount of postbiopsy pulmonary hemorrhage surrounding the biopsied right upper lobe nodule. 3. Likely pattern chronic interstitial lung disease superimposed over emphysema which is better appre ciated on prior CT dated 06/07/2023. Reviewed, dictated and finalized at location A. IMPRESSION: 1. No significant change in a small echogenic right pneumothorax post percutane ous lung biopsy. 2. Small amount of postbiopsy pulmonary hemorrhage surrounding the biopsied rig ht upper lobe nodule. 3. Likely pattern chronic interstitial lung disease superimposed over emphysema which is better appreciated on prior CT dated 06/07/2023.
--- NOTE | ~2023-06-29 | CT_ITS ---
EXAMINATION: CT biopsy lung w/imaging DATE: 06/29/2023 12:01 INDICATION: Solitary pulmonary nodule TECHNIQUE: The procedure including the risks and benefits was discussed with the patient. Risks discu ssed included infection, approximately 1/20 risk of symptomatic hemorrhage beyond mild hemoptysis, ap proximately 1/3 risk of pneumothorax, and approximately 1/10 risk of pneumothorax severe enough to wa rrant chest tube placement. The patient understood the risks and agreed to proceed. The patient was p laced supine. The skin overlying the anterolateral mid right chest was prepped and draped in sterile fashion. Anesthetic was administered with 1% lidocaine subcutaneously. A 19 gauge outer needle was advanced under CT guidance to the lesion of interest. A 20 gauge core biopsy needle was then used to obtain 4 core biopsy specimens. The needle was removed and the entry site was cleaned and dressed. There were no immediate complications. The dose-length product was 130.82 mGy-cm. FINDINGS: CT images demonstrate the outer needle tip adjacent to a 1.6 x 1.2 cm right upper lobe nodu le. There is underlying emphysema and UIP pattern chronic interstitial lung disease with coarse septa l line thickening and honeycombing at the periphery of the lungs. IMPRESSION: 1. Successful CT-guided biopsy of a 1.6 x 1.2 cm right upper lobe nodule. Reviewed, dictated and finalized at location A.
--- NOTE | ~2023-06-29 | XR_ITS ---
EXAMINATION: XR chest 1V DATE: 06/29/2023 12:01 INDICATION: Status post right percutaneous lung biopsy TECHNIQUE: frontal view of the chest was obtained. COMPARISON: Chest radiograph dated 06/23/2023 FINDINGS: Again seen are multiple coarse reticular opacities at the periphery of the right lung and at the left lung base consistent with chronic interstitial lung disease which demonstrated usual interstitial pn eumonia (UIP) pattern superimposed over emphysema on the prior CT. Increased size of a nodular with ill-defined margins in the right perihilar region corresponding to t he biopsied nodule and small amount of surrounding pulmonary hemorrhage. Small right apical pneumotho rax. No pleural effusion or left-sided pneumothorax. The cardiomediastinal silhouette is normal. IMPRESSION: 1. Small right apical pneumothorax post percutaneous biopsy of a right upper lobe nodule. 2. Small amount of postbiopsy pulmonary hemorrhage surrounding the biopsied nodule. Reviewed, dictated and finalized at location A. IMPRESSION: 1. Small right apical pneumothorax post percutaneous biopsy of a right upper lo be nodule. 2. Small amount of postbiopsy pulmonary hemorrhage surrounding the biopsied nod ule.
[2023-06-29 09:49] LABS: Mean Platelet Volume 9.8 fl (7.4-10.4); Platelet Count Result 237 k/mm3 (150-375)
[2023-06-29 09:59] LABS: INR 0.9; Prothrombin Time 12.3 Seconds (11.1-14.7)
== END 2023-06-29 15:28 | disposition home or self-care (01) ==
PROVIDERS: PCP Family Medicine; Referring Provider Internal Medicine Pulmonary Disease; Visit Provider Radiology Diagnostic Radiology
PROC: BB24ZZZ Computerized Tomography (CT Scan) of Bilateral Lungs (ICD-10-PCS; CPT 32408; principal; 2023-06-29 11:00)
DX: R91.1 Solitary pulmonary nodule (principal)
CPT/HCPCS: 32408; 36415; 71045; 85049; 85610; 88305; 88342

== ENCOUNTER 2023-07-11 08:27 | Outpatient (CLI) | payer OTHER, SELFPAY ==
[2023-07-11 09:20] LABS: Basophils Percent Auto 0.6 % (0.2-1.2); Eosinophils Absolute Auto 0.1 K/mm3 (0-0.3); Hematocrit 41.4 % (37.0-47.0); Hemoglobin 13.4 g/dL (12.0-15.0); Immature Granulocyte Absolute 0.03 K/mm3 (0.00-0.031); Immature Granulocyte Percent A 0.5 % (0-0.5); Lymphocytes Absolute Auto 1.09 K/mm3 (0.9-3.2); Lymphocytes Percent Auto 17.4 % (18.3-44.2); Mean Corpuscular HGB Conc 32.4 g/dl (32-36); Mean Corpuscular Hemoglobin 31.9 pg (26-34); Mean Corpuscular Volume 98.6 fl (80-100); Mean Platelet Volume 10.2 fl (7.4-10.4); Monocytes Absolute Auto 0.6 K/mm3 (0.1-0.6); Neutrophils Absolute Auto 4.4 K/mm3 (1.3-6.7); Neutrophils Percent Auto 70.5 % (45.5-73.1); Platelet Count Result 254 k/mm3 (150-375); Red Cell Distribution Width 12.9 % (11.5-14.5); White Blood Count 6.3 K/mm3 (4.5-10.0)
[2023-07-11 09:34] LABS: Alanine Aminotransferase 15 U/L (6-35); Albumin Level 4.2 g/dL (3.5-5.1); Alkaline Phosphatase 70 U/L (38-126); Anion Gap 6 mmol/L (8-16); Aspartate Amino Transferase 21 U/L (14-36); Bilirubin,Total 0.5 mg/dL (0.2-1.3); Blood Urea Nitrogen 18 mg/dL (7-17); Calcium 9.5 mg/dL (8.4-10.2); Carbon Dioxide 28 mmol/L (22-30); Chloride 105 mmol/L (98-107); Cholesterol 217 mg/dL (0-200); Estimated Glomerular Filt Rate > 60; Glucose 97 mg/dL (65-110); HDL Direct 68 mg/dL; Potassium 4.2 mmol/L (3.4-5.0); Sodium 139 mmol/L (137-145); Triglycerides 101 mg/dL (<150)
[2023-07-11 09:45] LABS: LDL Cholesterol Direct 98 mg/dL
== END 2023-07-11 08:28 | disposition home or self-care (01) ==
PROVIDERS: PCP Family Medicine; Visit Provider Physician Assistant
DX: I25.10 Atherosclerotic heart disease of native coronary artery without angina pectoris (principal); I10 Essential (primary) hypertension; Z72.0 Tobacco use
CPT/HCPCS: 36415; 80053; 80061; 85025

== ENCOUNTER 2023-08-22 07:46 | Outpatient (CLI) | payer OTHER, SELFPAY ==
--- NOTE | 2023-08-22 10:44 | WPDSIXMINUTE ---
Six Minute Walk Procedure Procedure Performed Pulmonary Stress Test (6 min walk) Six Minute Walk Six Minute Walk: This 6 minute walk test was carried out with the patient breathing ambient air. The pre-walk baseline oxyhemoglobin saturation was 96%. The patient walked 243 m with no stops during testing. During the walk the oxyhemoglobin saturation remained in the range of 92% to 98%. Impression: No evidence of oxyhemoglobin desaturation on this testing.
== END 2023-08-22 07:47 | disposition home or self-care (01) ==
PROVIDERS: PCP Family Medicine
DX: C34.90 Malignant neoplasm of unspecified part of unspecified bronchus or lung (principal)
CPT/HCPCS: 94618

== ENCOUNTER 2023-12-12 09:40 | Outpatient (CLI) | payer OTHER, SELFPAY ==
--- NOTE | ~2023-12-12 | XR_ITS ---
XR chest 2V DATE: 12/12/2023 09:58 INDICATION: Cough TECHNIQUE: PA and lateral views COMPARISON: 06/29/2023 portable AP chest 06/07/2023 CT chest high resolution scan FINDINGS: At least 2.5 cm irregular mass density is noted overlying the right mid lung, suspicious fo r interval growth of previously reported 1.4 cm right lung mass on 06/07/2023 CT chest high-resolution scan. Moderate bilateral hyperinflation, suggesting COPD. Prominently peripheral interstitial changes, like ly due to usual interstitial pneumonia type interstitial pulmonary fibrosis. Normal heart size. Thoracic and abdominal aortic and great vessel calcification. No pleural effusion or pulmonary vascular congestion or pneumothorax is detected. Diffuse osteopenia. Mild loss of height and anterior wedging at T12, chronic, present on 06/07/2023. IMPRESSION: Enlarging right lung mass, highly suspicious for bronchogenic carcinoma Reviewed, dictated and finalized at location B. F [employer] IMPRESSION: Enlarging right lung mass, highly suspicious for bronchogenic carci noma
[2023-12-12 10:12] LABS: Basophils Percent Auto 0.5 % (0.2-1.2); Eosinophils Absolute Auto 0.2 K/mm3 (0-0.3); Eosinophils Percent Auto 3.2 % (0-4.4); Hemoglobin 13.4 g/dL (12.0-15.0); Immature Granulocyte Absolute 0.02 K/mm3 (0.00-0.031); Immature Granulocyte Percent A 0.3 % (0-0.5); Lymphocytes Percent Auto 7.9 % (18.3-44.2); Mean Corpuscular HGB Conc 31.9 g/dl (32-36); Mean Corpuscular Hemoglobin 30.5 pg (26-34); Mean Corpuscular Volume 95.7 fl (80-100); Mean Platelet Volume 9.9 fl (7.4-10.4); Monocytes Absolute Auto 0.6 K/mm3 (0.1-0.6); Monocytes Percent Auto 8.9 % (2.6-8.5); Neutrophils Percent Auto 79.2 % (45.5-73.1); Platelet Count Result 239 k/mm3 (150-375); Red Blood Count 4.39 M/mm3 (4.2-5.4); Red Cell Distribution Width 13.8 % (11.5-14.5); White Blood Count 6.3 K/mm3 (4.5-10.0)
[2023-12-12 10:23] LABS: Alanine Aminotransferase 16 U/L (6-35); Albumin Level 4.3 g/dL (3.5-5.1); Alkaline Phosphatase 81 U/L (38-126); Anion Gap 7 mmol/L (8-16); Aspartate Amino Transferase 23 U/L (14-36); Bilirubin,Total 0.6 mg/dL (0.2-1.3); Blood Urea Nitrogen 24 mg/dL (7-17); Calcium 9.8 mg/dL (8.4-10.2); Carbon Dioxide 23 mmol/L (22-30); Chloride 107 mmol/L (98-107); Estimated Glomerular Filt Rate > 60; Glucose 109 mg/dL (65-110); Potassium 4.5 mmol/L (3.4-5.0); Sodium 137 mmol/L (137-145)
[2023-12-12 10:54] LABS: Influenza A QL RT-PCR Negative (Negative); Influenza B QL RT-PCR Negative (Negative); RSV RNA, RT-PCR Positive (Negative); SARS-CoV-2 RNA PCR Negative (Negative)
[2023-12-12 11:07] LABS: Free T4 Free Thyroxine 1.44 ng/mL (0.78-2.19)
[2023-12-15 07:30] LABS: Triiodothyronine T3 Free 3.8 pg/mL (2.3-4.2)
== END 2023-12-12 09:41 | disposition home or self-care (01) ==
PROVIDERS: PCP Family Medicine; Visit Provider Physician Assistant
DX: C34.90 Malignant neoplasm of unspecified part of unspecified bronchus or lung (principal); I10 Essential (primary) hypertension; R53.83 Other fatigue; B02.9 Zoster without complications; E07.9 Disorder of thyroid, unspecified; J02.9 Acute pharyngitis, unspecified; R05.9 Cough, unspecified
CPT/HCPCS: 36415; 71046; 80053; 84439; 84443; 84481; 85025; 87637

== ENCOUNTER 2023-12-19 10:09 | Inpatient (IN) | payer OTHER, SELFPAY ==
[2023-12-19] VITALS (12 sets, daily range): BP systolic 103–139; BP diastolic 51–91; PULSE 71–98; RESP 16–24; TEMP 36.7–36.8; O2SAT 91–100
--- NOTE | ~2023-12-19 | CT_ITS ---
EXAMINATION: CT brain wo con, CTA brain carotid DATE: 12/19/2023 10:23 INDICATION: Left arm weakness. TECHNIQUE: 1. Computed tomography (CT) of the head was performed without intravenous contrast. Sagittal and cammy nal reconstructions were performed. The mA was adjusted according to patient size. Iterative reconstr uction technique was employed. The dose-length product was 1210.67 mGy-cm. 2. Computed tomographic angiography (CTA) of the head and neck was performed with 100 mL Omnipaque-35 0 intravenous contrast. Multiplanar reconstructions and maximum intensity projection 3D-reconstructio ns of the carotid arteries and of the intracranial arteries were created by the technologist on a [employer] workstation. Automated exposure control and iterative reconstruction technique were employed.Th e dose-length product was 1060.08 mGy-cm. COMPARISON: None. FINDINGS: Carotid arteries: Nonhemodynamically significant atherosclerotic plaque at the normal caliber aortic arch and the great vessels arising from the arch. There is approximately 30% stenosis on the left subclavian artery. Th ere is 40% stenosis of the right carotid bulb relative to normal distal artery lumen diameter (NASCET criteria). There is 30% stenosis of the left carotid bulb relative to normal distal artery lumen aiyana meter. Bilateral vertebral arteries are codominant with no hemodynamically significant stenosis. Mode rate emphysema and some pleural parenchymal scarring at the bilateral upper lungs. Calcified mediasti nal lymph nodes consistent with old granulomatous disease. Severe cervical spondylosis. There are a f ew likely benign subcentimeter thyroid nodules. Head: No acute intracranial hemorrhage or abnormal extra axial fluid collection. There are couple small sally ear hyperdensities in the anterior left cerebellar hemisphere with surrounding decreased attenuation suspicious for thrombosed vessels in setting of acute infarction. There are dystrophic calcifications in the bilateral basal ganglia. There is mild scattered white matter hypoattenuation consistent with chronic small vessel ischemic disease. Ventricles are normal and symmetric. No mass/mass effect. No abnormally enhancing brain lesions on the postcontrast imaging. Moderate mucosal thickening in the bi lateral ethmoid and maxillary sinuses. The orbits are normal. Minimal left mastoid effusion. Intracranial arteries Scattered nonhemodynamically significant atherosclerotic plaque along the bilateral carotid siphons. There is no hemodynamically significant stenosis in the vertebral, basilar and internal carotid arter ies. Vertebral arteries are codominant. There are no aneurysms identified. Both A1 segments are naranjo nt. The bilateral P1 segments are patent but diminutive with the majority of flow to the bilateral po sterior cerebral arteries supplied via a larger caliber posterior communicating arteries. Cerebral a rterial arborization appears symmetric. IMPRESSION: 1. 40% stenosis of the right carotid bulb relative to normal distal artery lumen diameter (NASCET cri teria). 2. 30% stenosis of the left carotid bulb relative to normal distal artery lumen diameter. 3. Suggestion of a small acute infarct in the anterior left cerebellar hemisphere surrounding a tiny linear density suspicious for a small thrombosed artery. Dr. Fagan discussed these findings with Vinod Valdovinos at 10:32 AM. 4. Mild scattered white matter hypoattenuation consistent with chronic small vessel ischemic disease. 5. Moderate emphysema. Reviewed, dictated and finalized at location A. OLITH OPERATOR IMPRESSION: 1. 40% stenosis of the right carotid bulb relative to normal distal artery lume n diameter (NASCET criteria). 2. 30% stenosis of the left carotid bulb relative to normal distal artery lumen diameter. 3.
--- NOTE | ~2023-12-19 | XR_ITS ---
Portable chest x-ray Comparison: 12/12/2023 Clinical History: Back pain, history lung cancer Findings: There is stable hazy opacity right midlung. There is mild bibasilar interstitial prominenc e. Cardiomediastinal silhouette is stable. Bones and soft tissues are unremarkable. Impression: Stable hazy opacity right midlung, indeterminate. This could reflect post therapy/posttreatment low e given history of lung cancer, versus possibly acute pneumonia. Recurrent neoplasm felt to be less l ikely given appearance, though this is not completely excluded. Probable underlying chronic interstitial disease and/or COPD. Reviewed, dictated and finalized at location M. S MARKETING MANAGER Impression: Stable hazy opacity right midlung, indeterminate. This could reflect post thera py/posttreatment change given history of lung cancer, versus possibly acute pne umonia. Recurrent neoplasm felt to be less likely given appearance, though this is not completely excluded. Probable underlying chronic interstitial disease and/or COPD.
--- NOTE | ~2023-12-19 | MR_ITS ---
EXAMINATION: MR brain/brain stem wo/w con DATE: 12/21/2023 08:01 INDICATION: CVA TECHNIQUE: Magnetic resonance imaging (MRI) of the brain and brainstem was performed without intraven ous contrast. Sequences included sagittal and axial T1-weighted SE, axial diffusion-weighted FS SE, a xial T2*-weighted GRE, axial T2-weighted FLAIR Propeller, and axial T2-weighted Propeller. Apparent d iffusion coefficient (ADC) maps were created. COMPARISON: CT dated 12/19/2023. FINDINGS: Brain parenchymal volume is normal for age. There is an acute multicentric infarction of th e right parietal lobe without significant mass effect. No acute intracranial hemorrhage. There are sc attered moderate periventricular and subcortical white matter changes, most likely related to small v essel ischemic disease (microangiopathy). there is a chronic right cerebellar infarction. No enhancin g masses are identified. No mass effect. Study somewhat limited due to or motion artifact. There is m ucosal thickening of the maxillary sinuses. Orbits are symmetric without disconjugate gaze. Structure s of the posterior fossa including 7/8th cranial nerve complexes are normal. Midline sagittal images demonstrate normal corpus callosum and craniovertebral junction. IMPRESSION: 1. Acute focal multicentric right parietal lobe infarction. No significant mass effect. No hemorrhage . 2: Chronic right cerebellar infarction. 3: Chronic age-related findings. 5: Moderate maxillary sinus disease. Reviewed, dictated and finalized at location A. HETIC GEM PRESS OPERATOR IMPRESSION: 1. Acute focal multicentric right parietal lobe infarction. No significant mass effect. No hemorrhage. 2: Chronic right cerebellar infarction. 3: Chronic age-related findings. 5: Moderate maxillary sinus disease.
--- NOTE | ~2023-12-19 | US_ITS ---
EXAMINATION: US carotid duplex BI DATE: 12/20/2023 09:54 INDICATION: Stroke presenting with numbness and tingling and left upper extremity hemiparesis TECHNIQUE: Grayscale, color Doppler, and pulsed Doppler images of the cervical carotid arteries were obtained. The degree of vessel stenosis is placed in one of the following categories: normal, <50%, 5 0-69%, >=70% but less than near-occlusion, near-occlusion, or total occlusion. Note that percent sten osis relative to normal distal artery lumen diameter is indirectly measured from velocity measurement s as described by Chance, et al. Radiology 2003; 229:340-346. COMPARISON: CT dated 12/19/2023 FINDINGS: RIGHT: The right common carotid artery (CCA) peak systolic velocity (PSV) is 77 cm/s. The right internal car otid artery (ICA) PSV is 123 cm/s. The right ICA end-diastolic velocity (EDV) is 23 cm/s. The right I CA/CCA PSV ratio is 1.6. Grayscale and color Doppler images yield an estimate of <50% diameter reduct ion from plaque in the ICA. The external carotid artery (ECA) PSV is 121 cm/s. There is antegrade nathaniel w in the right vertebral artery. LEFT: The left CCA PSV is 109 cm/s. The left ICA PSV is 83 cm/s. The left ICA EDV is 20 cm/s. The left ICA/ CCA PSV ratio is 0.8. Grayscale and color Doppler images yield an estimate of <50% diameter reduction from plaque in the ICA. The ECA PSV is 77 cm/s. There is antegrade flow in the left vertebral artery . IMPRESSION: 1. <50% stenosis in the right internal carotid artery. 2. <50% stenosis in the left internal carotid artery. Reviewed, dictated and finalized at location A. EF MAP MODELER
--- NOTE | 2023-12-19 10:10 | ECG_ITS ---
Measurements Intervals [place] Rate: 88 P: 52 LA: 141 QRS: 9 QRSD: 92 T: 8 QT: 336 QTc: 408 Interpretive Statements SINUS RHYTHM BASELINE ARTIFACT POSSIBLE LEFT ATRIAL ENLARGEMENT [-0.1mV P-WAVE IN V1/V2] POSSIBLE INFERIOR MYOCARDIAL INFARCTION , PROBABLY OLD [30 ms Q WAVE IN II/aVF] BORDERLINE ECG NO PREVIOUS ECG AVAILABLE FOR COMPARISON Electronically Signed On 12-19-2023 18:28:24 PC TECHNICIAN by Ariel Carvalho M.D.
[2023-12-19 10:38] LABS: Glucose Point of Care 117 mg/dl (65-105)
[2023-12-19 10:50] LABS: Basophils Absolute Auto 0.1 K/mm3 (0.0-0.1); Basophils Percent Auto 0.4 % (0.2-1.2); Eosinophils Percent Auto 0.3 % (0-4.4); Hematocrit 39.9 % (37.0-47.0); Hemoglobin 12.7 g/dL (12.0-15.0); Immature Granulocyte Absolute 0.16 K/mm3 (0.00-0.031); Immature Granulocyte Percent A 1.1 % (0-0.5); Lymphocytes Absolute Auto 0.82 K/mm3 (0.9-3.2); Lymphocytes Percent Auto 5.8 % (18.3-44.2); Mean Corpuscular HGB Conc 31.8 g/dl (32-36); Mean Corpuscular Hemoglobin 30.5 pg (26-34); Mean Corpuscular Volume 95.7 fl (80-100); Mean Platelet Volume 9.4 fl (7.4-10.4); Monocytes Absolute Auto 0.5 K/mm3 (0.1-0.6); Monocytes Percent Auto 3.6 % (2.6-8.5); Neutrophils Absolute Auto 12.5 K/mm3 (1.3-6.7); Neutrophils Percent Auto 88.8 % (45.5-73.1); Platelet Count Result 329 k/mm3 (150-375); Red Blood Count 4.17 M/mm3 (4.2-5.4); Red Cell Distribution Width 13.5 % (11.5-14.5); White Blood Count 14.1 K/mm3 (4.5-10.0)
[2023-12-19] MEDS: ONDANSETRON INJ 4 MG/2 ML VIAL IV PUSH (10:53)
[2023-12-19 11:00] LABS: Alanine Aminotransferase 16 U/L (6-35); Alkaline Phosphatase 87 U/L (38-126); Anion Gap 7 mmol/L (8-16); Aspartate Amino Transferase 20 U/L (14-36); Bilirubin,Total 0.5 mg/dL (0.2-1.3); Blood Urea Nitrogen 33 mg/dL (7-17); Calcium 9.2 mg/dL (8.4-10.2); Carbon Dioxide 25 mmol/L (22-30); Chloride 99 mmol/L (98-107); Estimated CRCL calculation 38 ml/min; Estimated Glomerular Filt Rate 54; Glucose 111 mg/dL (65-110); Potassium 4.6 mmol/L (3.4-5.0); Sodium 131 mmol/L (137-145)
[2023-12-19 11:10] LABS: INR 0.9; Prothrombin Time 12.9 Seconds (11.1-14.7); Troponin I < 0.012 ng/mL (0.000-0.034)
[2023-12-19 11:11] LABS: Partial Thromboplastin Time 24.8 SECONDS (22.3-36.8)
--- NOTE | 2023-12-19 11:16 | ED.NEUROSD ---
HPI - Neuro Symptoms/Deficit General Chief Complaint: Suspected CVA <Eladio Valdovinos MD - Last Filed: 12/19/23 18:27> Stated Complaint: r/o cva <Eladio Valdovinos MD - Last Filed: 12/19/23 18:27> Time Seen by Provider: 12/19/23 10:26 <Eladio Valdovinos MD - Last Filed: 12/19/23 18:27> History of Present Illness HPI Narrative: Patient is a 73-year-old female who presents ER with concerns of sudden onset CVA. Patient was at her PCPs office for routine checkup when she developed sudden onset right arm and right leg numbness and weakness according to the patient's PCP. According to the patient it was the left side that was affected. Patient was sent to the ER. Stroke alert activated. Patient to receive the CTA as well. Upon getting back to the room from CT evaluation completed. Patient with NIH stroke scale of 0 at this time. Patient's last known well was 10:00 a.m.. Patient has history of lung cancer and underwent 5 radiation treatments with chemotherapy. Last radiation treatment was August 2023 at [facility] in [place], [place]. Patient reports when her weakness started she was having trouble taking her glasses off of the left hand. The tingling/ numbness was in the left leg. Patient reports she is being seen because of back pain as she was recently diagnosed with RSV and she is having some cough and wheezing. <Eladio Valdovinos MD - Last Filed: 12/19/23 18:27> Related Data Home Medications: Home Medications Medication Instructions Recorded Confirmed cholecalciferol (vitamin D3) 1 tab-cap PO DAILY 10/13/21 12/20/23 mecobalamin (vitamin B12) 1 tablet PO DAILY 10/13/21 12/20/23 benzonatate 100 mg capsule mg PO 12/20/23 prednisone 10 mg tablet See Rx Instructions .Route .COMPLEX 12/20/23 12/20/23 <Eladio Valdovinos MD - Last Filed: 12/19/23 18:27> Allergies/Adverse Reactions: Allergies Allergy/AdvReac Type Severity Reaction Status Date / Time codeine AdvReac Mild NAUSEA/VOMI Verified 12/19/23 09:17 TING <Eladio Valdovinos MD - Last Filed: 12/19/23 18:27> Review of Systems Review of Systems: All systems reviewed & are unremarkable except as noted in HPI and below <Eladio Valdovinos MD - Last Filed: 12/19/23 18:27> Constitutional: Constitutional: Reports no additional constitutional complaints <Eladio Valdovinos MD - Last Filed: 12/19/23 18:27> ENT: Reports system reviewed and no additional complaints, except as documented <Eladio Valdovinos MD - Last Filed: 12/19/23 18:27> Cardiovascular: Cardiovascular: Reports no additional cardiovascular complaints <Eladio Valdovinos MD - Last Filed: 12/19/23 18:27> Respiratory: Respiratory: Reports cough, Denies hemoptysis, Denies dyspnea and Reports wheezing <Eladio Valdovinos MD - Last Filed: 12/19/23 18:27> Gastrointestinal: Gastrointestinal: Reports no additional gastrointestinal complaints <Eladio Valdovinos MD - Last Filed: 12/19/23 18:27> Integumentary/Breasts: Skin/Breast: Reports system reviewed and no additional complaints, except as docu <Eladio Valdovinos MD - Last Filed: 12/19/23 18:27> Neurologic: Denies dizziness, Denies syncope, Denies headache(s), Reports lack of coordination (LUE) and Reports Sensory deficit (Neuro) <Eladio Valdovinos MD - Last Filed: 12/19/23 18:27> PMFSH Past Medical History Medical History: Medical History Benign essential HTN Breast CA Right side in 2016. Currently in remission. Breast cancer screening Family history of radiation therapy Frequency of urination YOBANI (generalized anxiety disorder) Hematuria HTN (hypertension) Hx antineoplastic chemotherapy Hx of adenomatous polyp of colon Left knee DJD Left knee pain Lipid screening Neuropathy associated with cancer Osteoporosis Shingles rash Wears glasses <Eladio Valdovinos MD - Last Filed: 12/19/23 18:27> Surgical History Surgical History: Surgic
[2023-12-19] MEDS: ASPIRIN 81 MG CHEWABLE TABLET 324 MG PO (12:15)
[2023-12-19] MEDS: IPRATROPIUM 0.5 MG/ALBUTEROL SULFATE 2.5 MG AMPUL.NEB 3 ML INHALATION (12:28)
[2023-12-19 12:37] LABS: Appearance Urine Clear (Clear); Bilirubin Urine Negative (Negative); Blood Urine Negative (Negative); Color Urine Yellow (Yellow); Glucose Urine UA Negative (Negative); Ketones Urine Negative (Negative); Leukocyte Esterase Ur Negative LEU/UL (Negative); Nitrate Urine Negative (Negative); Protein Urine Negative (Negative); Urobilinogen Urine 0.2 mg/dL (<2.0); pH Urine 5.5 (5.0-9.0)
[2023-12-19 12:42] LABS: Add Urine Microscopic? NO; Specific Grav Ur 1.044 (1.001-1.035)
[2023-12-19] MEDS: AZITHROMYCIN 500 MG/NS 250 ML 500 MG/250 ML BAG 250 MG IVPB (13:15)
--- NOTE | 2023-12-19 13:21 | PC.NURSE ---
1318 Spoke with [facility] transfer center to give them pts information.
[2023-12-19] MEDS: BELLADONNA ALK/PHENOB ELIX 10 ML, MAG HYDROX/ALUMINUM HYD/SIMETH 30 ML, LIDOCAINE HCL 2... PO ×2 (14:19→21:14)
--- NOTE | 2023-12-19 16:01 | PC.NURSE ---
1600 food tray ordered for pt.
--- NOTE | 2023-12-19 18:08 | PC.NURSE ---
bed status check-no beds available remains on wait list
[2023-12-19] MEDS: PANTOPRAZOLE SODIUM IV 40 MG VIAL IV PUSH (21:14)
[2023-12-20] VITALS (16 sets, daily range): BP systolic 108–149; BP diastolic 53–85; PULSE 61–100; RESP 15–25; TEMP 35.9–36.7; O2SAT 94–98; BMI 24.0
--- NOTE | 2023-12-20 03:18 | PC.NURSE ---
Pt c/o frontal headache, no other complaints at this time. EDP notified. New orders placed.
[2023-12-20] MEDS: ACETAMINOPHEN 500 MG TABLET 1000 MG PO (03:21)
[2023-12-20] MEDS: MAG HYDROX/AL HYDROX/SIMETH 30 ML UDC PO (08:33)
[2023-12-20] MEDS: ASPIRIN 325 MG TABLET PO (08:35)
--- NOTE | 2023-12-20 10:13 | PC.NURSE ---
Meal tray ordered for pt
[2023-12-20] MEDS: CLOPIDOGREL BISULFATE 300 MG TABLET PO (10:17)
[2023-12-20 10:26] LABS: Glucose Point of Care 106 mg/dl (65-105)
[2023-12-20] MEDS: ACETAMINOPHEN 325 MG TABLET 650 MG PO (12:39)
[2023-12-20] MEDS: ONDANSETRON INJ 4 MG/2 ML VIAL IV PUSH ×2 (12:39→19:45)
--- NOTE | 2023-12-20 12:39 | PC.NURSE ---
Meal tray ordered for pt
[2023-12-20] MEDS: AZITHROMYCIN 500 MG/NS 250 ML 500 MG/250 ML BAG 250 MG IVPB (13:43)
[2023-12-20] MEDS: FAMOTIDINE 20 MG/2 ML VIAL IV PUSH (15:05)
--- NOTE | 2023-12-20 15:20 | ADMGEN ---
This patient, Medina Lucas, was admitted to 2 Medical Room 251-. Patient/family oriented to hospital policies and general routines including ID bracelet, bed and alarms, visiting hours, pain management, procedures, bathroom and other care routines, personal items, smoking policy, room service/diet, and visiting hours. Information on how to activate the Rapid Response Team has been discussed. Patient/Family are encouraged to report perceived risks to care and to ask questions if they do not understand what they are told or what they should do.
--- NOTE | 2023-12-20 18:45 | PM.IMHP ---
H&P: HPI History of Present Illness Date/Time: 12/20/23 21:30 Chief Complaint: Left arm and leg weakness. Narrative: This is a 73-year-old female with hypertension, breast cancer status post lumpectomy, and lung cancer status post radiation who presented to the emergency department for evaluation of left arm and leg weakness. The patient provides the following history. She was at her primary care provider's office yesterday morning (follow-up visit after having tested positive for RSV last week) when she suddenly developed weakness and numbness in the left arm and leg. She was brought to CT scan immediately on arrival to the ER and at the time she was seen by the ED physician, her NIH stroke scale was 0. CTA of the head and neck showed a suggestion of a small acute infarct in the anterior left cerebellar hemisphere surrounding a tiny linear density suspicious for small thrombosed artery and less than 50% stenosis of the internal carotid arteries. ED physician spoke with the stroke team at [place] who recommended starting the patient on anti-platelet therapy and they accepted her in transfer as we did not have Neurology traditional chinese herbalist yesterday. She has been stable since that time with no apparent neurologic deficits. A bed was still pending today in the ED physician once again spoke with the stroke specialist at [place]. They recommended 300 mg Plavix loading followed by 75 mg daily in addition to aspirin 81 mg daily for 21 days. They felt it would be safe for the patient to be admitted to [place] today as neurology is on consult. No interventions were planned on their end. At the time my evaluation she is resting comfortably. Her only complaint is that of pain in the back and around the chest, likely due to coughing. She denies acute visual changes (she has ongoing, intermittent issues with blurry vision occasional diplopia for which she has seen her epic anesthesia analyst), vertigo, facial droop, difficulty speaking and swallowing, and significant paresthesias and weakness. She also denies palpitations, sensations of racing heart, and fluttering. No edema, calf pain, or tenderness. She denies fever, chills, and sweats. Review of Systems Review of Systems: Twelve systems were reviewed. No fever, chills, or sweats. She continues to have sinus congestion and a cough after testing positive for RSV last week. She has a couple days left in a prednisone taper. No exertional chest pain. No syncope or near syncope. Appetite has been good. She has occasional nausea and indigestion. Reports that she is taking her prednisone with food. No bloating or belching. She denies hematemesis, melena, and hematochezia. Except as documented, all other systems were reviewed and are negative. [facility] Past Medical History Medical History (Updated 12/21/23 @ 00:48 by Ibeth Webster PA-C) Adenomatous colon polyp Anxiety Cancer of right breast (2015) Status post lumpectomy and chemoradiation. 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 Osteoporosis Wears glasses Surgical History Surgical History (Updated 12/21/23 @ 00:10 by Ibeth Webster PA-C) History of colonoscopy with polypectomy History of lumpectomy of right breast (2015) History of tubal ligation Family History Family History Mother Patient's mother is in good health Hypertension Family history of malignant neoplasm of brain Sibling Patient's sister is in good health Patient's brother is in good health Family history of alcoholism, Onset Age: 53 Family history of dementia Family history of throat cancer Social History Social History (Updated 12/21/23 @ 00:11 by Ibeth Webster PA-C) Social History: Surrogate medical decision maker: Martinez Lucas, spouse. Code status: Full code. Smoking packs per day: 0.5 Smoking cigarettes per day: 10.0 Years smoked: 20 Smoking pack-years: 10.00 Smoking status: Former smoker S
[2023-12-21] VITALS (10 sets, daily range): BP systolic 127–149; BP diastolic 61–70; PULSE 70–109; RESP 16–20; TEMP 36.1–36.9; O2SAT 93–96
--- NOTE | 2023-12-21 00:20 | ECHO_ITS ---
Patient Info Name: Medina Lucas Age: 73 years : 1950 Gender: Female Ht: 63 in Wt: 130 lbs BSA: 1.63 m2 HR: 75 bpm BP: 145 / 67 mmHg Heart Rhythm: Sinus Rhythm Technical Quality: Good Exam Date: 12/21/2023 11:00 AM Exam Location: Echo Lab Patient Status: Outpatient Admit Date: 12/20/2023 Staff Ordering Physician: Ibeth Webster PA-C Auto Body Detailer: Med Davis RDCS Attending Provider: Suresh Denny MD Referring Physician: Darin STANFORD; Exam Type: CA echo doppler w bubble study Study Info Indications - stroke, htn, former smoker Complete two-dimensional, color flow and Doppler transthoracic echocardiogram is performed with agitated saline. Summary 1. Left ventricular chamber dimension is normal. 2. Left ventricular systolic function is normal, estimated at 60-65%. 3. There is mildly increased left ventricular wall thickness. 4. The left ventricular diastolic function is grade I diastolic dysfunction. 5. No evidence for [id number] shunt with injection of agitated saline with and without Valsalva. Left Ventricle Left ventricular chamber dimension is normal. Left ventricular systolic function is normal, estimated at 60-65%. There is mildly increased left ventricular wall thickness. The left ventricular diastolic function is grade I diastolic dysfunction. Right Ventricle Right ventricular chamber dimension is normal. Right ventricular systolic function is normal. Left Atria Left atrial chamber dimension is normal. Right Atria Right atrial chamber dimension is normal. Atrial Septum No evidence for [id number] shunt with injection of agitated saline with and without Valsalva. Aortic Valve The aortic valve is trileaflet. There is trace aortic valve regurgitation. Pulmonic Valve The pulmonic valve is not well visualized. There is trace pulmonic regurgitation. Mitral Valve The mitral valve has normal leaflets. There is trace mitral valve regurgitation. The mitral valve annulus is mildly calcified. Tricuspid Valve The tricuspid valve leaflets are normal. There is trace tricuspid valve regurgitation. Pericardium/Pleural The pericardium appears normal. There is small pericardial effusion. Inferior Vena Cava Normal inferior vena cava with >50% collapse upon inspiration consistent with normal right atrial pressure, 5 mmHg. Aorta The aortic root size at the sinus of Valsalva is normal. Left Ventricular Outflow Tract Name Value Normal LVOT 2D LVOT Diameter 2.2 cm LVOT Doppler LVOT Peak Gradient 5 mmHg LVOT Mean Gradient 2 mmHg LVOT VTI 21 cm LVOT VTI/AV VTI Ratio 0.8 LVOT Stroke Volume 81 ml LVOT CO 6.3 l/min LVOT CI 3.9 l/min/m2 Pulmonic Valve Name Value Normal RVOT Doppler RVOT Peak Grad
[2023-12-21 01:42] LABS: Basophils Absolute Auto 0.1 K/mm3 (0.0-0.1); Basophils Percent Auto 0.6 % (0.2-1.2); Eosinophils Absolute Auto 0.2 K/mm3 (0-0.3); Eosinophils Percent Auto 2.2 % (0-4.4); Hematocrit 38.1 % (37.0-47.0); Immature Granulocyte Absolute 0.09 K/mm3 (0.00-0.031); Lymphocytes Absolute Auto 2.02 K/mm3 (0.9-3.2); Lymphocytes Percent Auto 23.5 % (18.3-44.2); Mean Corpuscular HGB Conc 31.5 g/dl (32-36); Mean Corpuscular Hemoglobin 30.2 pg (26-34); Mean Platelet Volume 9.3 fl (7.4-10.4); Monocytes Absolute Auto 0.8 K/mm3 (0.1-0.6); Monocytes Percent Auto 9.8 % (2.6-8.5); Neutrophils Absolute Auto 5.4 K/mm3 (1.3-6.7); Neutrophils Percent Auto 62.9 % (45.5-73.1); Platelet Count Result 317 k/mm3 (150-375); Red Blood Count 3.97 M/mm3 (4.2-5.4); Red Cell Distribution Width 13.4 % (11.5-14.5); White Blood Count 8.6 K/mm3 (4.5-10.0)
[2023-12-21 01:49] LABS: Influenza A QL RT-PCR Negative (Negative); Influenza B QL RT-PCR Negative (Negative); RSV RNA, RT-PCR Positive (Negative); SARS-CoV-2 RNA PCR Negative (Negative)
[2023-12-21 01:56] LABS: Anion Gap 6 mmol/L (8-16); Blood Urea Nitrogen 23 mg/dL (7-17); Calcium 9.2 mg/dL (8.4-10.2); Carbon Dioxide 27 mmol/L (22-30); Chloride 105 mmol/L (98-107); Cholesterol 179 mg/dL (0-200); Estimated CRCL calculation 42 ml/min; Estimated Glomerular Filt Rate > 60; Glucose 95 mg/dL (65-110); HDL Direct 64 mg/dL; Magnesium 2.5 mg/dL (1.6-2.3); Potassium 4.4 mmol/L (3.4-5.0); Sodium 138 mmol/L (137-145); Triglycerides 126 mg/dL (<150)
[2023-12-21 02:07] LABS: LDL Cholesterol Direct 74 mg/dL
--- NOTE | 2023-12-21 05:13 | PC.NURSE ---
PT STATED SHE WAS RECENTLY RSV POSITIVE. TESTING POSITIVE ON 12-12. PT WAS TESTED AGAIN HERE AND STILL SHOWING A POSITIVE RESULT. PT OUT OF THE ISOLATION WINDOW.
[2023-12-21] MEDS: amLODIPine BESYLATE 5 MG TABLET BY MOUTH (08:54)
[2023-12-21] MEDS: ASPIRIN 81 MG ENTERIC TABLET PO (08:54)
[2023-12-21] MEDS: CHOLECALCIFEROL 1,000 UNITS TABLET 1000 UNITS PO (08:54)
[2023-12-21] MEDS: predniSONE 10 MG TABLET BY MOUTH (08:55)
[2023-12-21] MEDS: lisinopriL 10 MG TABLET BY MOUTH (08:55)
[2023-12-21] MEDS: CLOPIDOGREL BISULFATE 75 MG TABLET PO (08:55)
[2023-12-21] MEDS: CYANOCOBALAMIN 1,000 MCG TABLET 1000 MCG PO (08:55)
--- NOTE | 2023-12-21 12:15 | WPDNEURCNPN ---
Assessment and Plan Assessment and plan (1) Cerebrovascular accident: Code(s): I63.9 - Cerebral infarction, unspecified Status: Acute Plan Abnormal MRI with acute focal multicentric right parietal lobe infarction with negative Doppler study of the carotid and nonsurgical stenosis of the CTA of the brain and neck. Patient is receiving the medications accordingly, scheduled to have the echocardiogram, would need to make sure the lesion is not metastatic disease. Consult date: 12/21/23 HPI: Medina Lucas is a 73 year old female Admitted to the hospital through the emergency room for the possibility of stroke patient was reportedly at her primary care physician's office when she developed sudden onset of left upper extremity and leftlower extremity numbness as well as weakness. Additionally patient has the history of carcinoma of the lung and has undergone 5 radiation treatment with chemotherapy. She specifically mentions she had trouble taking her glasses of and she had tingling sensation and numbness in her left lower extremity as well. Evaluation included MRI of the brain which documented acute focal multicentric right parietal lobe infarction without any mass effect or hemorrhage in addition to chronic right cerebellar infarct. Her head and neck CTA documented 40% stenosis of the right carotid bulb 30% stenosis left carotid bulb and small acute infarct in the anterior left cerebellar hemisphere surrounded by tiny linear density raising the possibility of small thrombosed artery. At present patient is receiving all her medications accordingly in addition to prednisone which was started as an outpatient by her family physician. Echocardiogram has been done today. Patient has ongoing history of 1. Hypertension 2. Breast cancer with status post lumpectomy 3. Lung cancer with status post radiation. While in the emergency room ER had contacted [facility] who had suggested her to be started on anti-platelet therapy she remains subsequently stable with no apparent neurological deficit on subsequent called with the physician at [facility] Plavix 300mg was added Lashae followed by 75mg daily in addition to81mg daily additionally she was complaining of pain in her back. Review of Systems Review of Systems: All systems reviewed & are unremarkable except as noted in HPI and below PMFSH Past Medical History Medical History Adenomatous colon polyp Anxiety Cancer of right breast (2016) Status post lumpectomy and chemoradiation. 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 Osteoporosis Wears glasses Surgical History Surgical History (Updated 12/21/23 @ 00:10 by Ibeth Webster PA-C) History of colonoscopy with polypectomy History of lumpectomy of right breast (2016) History of tubal ligation Family History Family History Mother Patient's mother is in good health Hypertension Family history of malignant neoplasm of brain Sibling Patient's sister is in good health Patient's brother is in good health Family history of alcoholism, Onset Age: 53 Family history of dementia Family history of throat cancer Social History Social History (Updated 12/21/23 @ 00:11 by Ibeth Webster PA-C) Social History: Surrogate medical decision maker: Martinez Lucas, spouse. Code status: Full code. Smoking packs per day: 0.5 Smoking cigarettes per day: 10.0 Years smoked: 20 Smoking pack-years: 10.00 Smoking status: Former smoker Second hand tobacco smoke exposure: Yes Additional smoking assessment comments: Pt only smokes a pack a week. Alcohol intake: current Alcohol use details: Occasional alcohol use in moderation. Substance use: never Substance use type: does not use Do You Feel Safe in your Home?: Yes Lack of Transportation: No Lack of Food: Never True Current Housing: I Have
[2023-12-21] MEDS: AZITHROMYCIN 500 MG/NS 250 ML 500 MG/250 ML BAG 250 MG IVPB (13:24)
--- NOTE | 2023-12-21 14:05 | PM.IMPN ---
Progress Note: A&P Assessment and Plan (1) Cerebrovascular accident: Code(s): I63.9 - Cerebral infarction, unspecified Status: Acute Assessment and Plan: 12/21- Left sided weakness at office visit CT Head: Suggestion of a small acute infarct in the anterior left cerebellar hemisphere surrounding a tiny linear density suspicious for a small thrombosed artery ED provider consulted BJS- suggested plavix and ASA treatment Neurology consulted MRI brain ordered- IMPRESSION: 1. Acute focal multicentric right parietal lobe infarction. No significant mass effect. No hemorrhage. 2: Chronic right cerebellar infarction. 3: Chronic age-related findings.5: Moderate maxillary sinus disease No deficits presented at time of assessment (2) Hypertension: Code(s): I10 - Essential (primary) hypertension Status: Acute Assessment and Plan: BP stable 149/67 Resume home medications, Lisinopril, Norvasc (3) Abnormal chest x-ray: Code(s): R93.89 - Abnormal findings on diagnostic imaging of other specified body structures Status: Acute Assessment and Plan: Chest x-ray shows findings of possible pneumonia though could be related to post radiation treatment however given her recent RSV and continued symptoms, we will continue with empiric antibiotics Rocephin and Azithromycin RSV positive Cough present Sputum culture ordered Plan The patient presented to the emergency department for evaluation of sudden onset left arm and leg weakness which has essentially resolved as per HPI. Labs, imaging, EKG, and all reports were personally reviewed. CTA of the head and neck showed findings suspicious for acute CVA surrounding a small thrombosed artery. Stroke team at [place] suggested starting dual anti-platelet therapy which has been done. Lipid level ordered for a.m. to help determine starting dose of statin. Neurology has been consulted. Brain MRI and echocardiogram have been ordered and are pending. Carotid Doppler showed less than 50% stenosis in the bilateral internal carotid arteries. Blood pressures were reviewed and they have been stable. Chest x-ray shows findings of possible pneumonia though could be related to post radiation treatment however given her recent RSV and continued symptoms, we will continue with empiric antibiotics. Attempt sputum for culture. Her home medications will be reviewed and resumed as appropriate. Findings and treatment plan were discussed with the patient. Questions were solicited and answered to satisfaction. The patient's medical management will be taken over by the hospitalist team in a.m. Time Spent With Patient Time with patient: 15 - 25 minutes Subjective Date/time seen: 12/21/23 0930 Interval history: Narrative:HPI Chief Complaint: Left arm and leg weakness. This is a 73-year-old female with hypertension, breast cancer status post lumpectomy, and lung cancer status post radiation who presented to the emergency department for evaluation of left arm and leg weakness. The patient provides the following history. She was at her primary care provider's office yesterday morning (follow-up visit after having tested positive for RSV last week) when she suddenly developed weakness and numbness in the left arm and leg. She was brought to CT scan immediately on arrival to the ER and at the time she was seen by the ED physician, her NIH stroke scale was 0. CTA of the head and neck showed a suggestion of a small acute infarct in the anterior left cerebellar hemisphere surrounding a tiny linear density suspicious for small thrombosed artery and less than 50% stenosis of the internal carotid arteries. ED physician spoke with the stroke team at [place] who recommended starting the patient on anti-platelet therapy and they accepted her in transfer as we did not have Neurology water commissioner yesterday. She has been stable since that time with no apparent neurologic deficits. A bed was still pending today in
[2023-12-21] MEDS: traZODone HCL 50 MG TABLET BY MOUTH (20:18)
[2023-12-21] MEDS: traMADol HCL (*CRX) 50 MG TABLET PO (20:18)
[2023-12-22] VITALS (15 sets, daily range): BP systolic 105–121; BP diastolic 52–92; PULSE 73–103; RESP 14–17; TEMP 36.1–36.7; O2SAT 93–97
[2023-12-22 05:20] LABS: Hemoglobin 12.1 g/dL (12.0-15.0); Mean Corpuscular HGB Conc 31.8 g/dl (32-36); Mean Corpuscular Hemoglobin 30.6 pg (26-34); Mean Corpuscular Volume 96.2 fl (80-100); Mean Platelet Volume 9.4 fl (7.4-10.4); Platelet Count Result 329 k/mm3 (150-375); Red Blood Count 3.95 M/mm3 (4.2-5.4); Red Cell Distribution Width 13.6 % (11.5-14.5); White Blood Count 10.1 K/mm3 (4.5-10.0)
[2023-12-22] MEDS: ACETAMINOPHEN 325 MG TABLET 650 MG PO (05:35)
[2023-12-22 05:55] LABS: Alanine Aminotransferase 15 U/L (6-35); Albumin Level 3.7 g/dL (3.5-5.1); Alkaline Phosphatase 88 U/L (38-126); Anion Gap 3 mmol/L (8-16); Aspartate Amino Transferase 18 U/L (14-36); Bilirubin,Total 0.5 mg/dL (0.2-1.3); Blood Urea Nitrogen 22 mg/dL (7-17); Calcium 9.2 mg/dL (8.4-10.2); Carbon Dioxide 29 mmol/L (22-30); Chloride 105 mmol/L (98-107); Estimated CRCL calculation 50 ml/min; Estimated Glomerular Filt Rate > 60; Glucose 94 mg/dL (65-110); Magnesium 2.5 mg/dL (1.6-2.3); Potassium 4.1 mmol/L (3.4-5.0); Sodium 137 mmol/L (137-145)
--- NOTE | 2023-12-22 08:25 | P.CDI_ITS ---
CDI Query Clarification Request Pneumonia is noted in the assessment and plan. Patient is receiving Rocephin 1GM Q 24hrs and Azithromycin 500 mg Q 24hrs. Please clarify if Pneumonia has been ruled in, ruled out or unable to determine. * Ruled in * Ruled out * Unable to determine. RSV has been identified with a positive swab on 12/21/23. If able, please identify the underlying infectious process if known: * Pneumonia * Bronchitis * Upper respiratory infection * Lower respiratory infection * Other/Unknown <Patti Griggs RN - Last Filed: 12/22/23 08:33> Clarified Diagnosis Clarified Diagnosis: Pneumonia ruled out a patient presented from PCP office visit with cough, non productive, dx of RSV a lower respiratory virus <Catie Grier APRN - Last Filed: 12/22/23 15:06>
[2023-12-22] MEDS: CYANOCOBALAMIN 1,000 MCG TABLET 1000 MCG PO (09:26)
[2023-12-22] MEDS: CALCIUM CARBONATE (TUMS) 500 MG (200 MG ELEMENTAL) PO ×2 (09:26→21:00)
[2023-12-22] MEDS: predniSONE 10 MG TABLET BY MOUTH (09:27)
[2023-12-22] MEDS: ATORVASTATIN 40 MG TABLET 80 MG PO (09:27)
[2023-12-22] MEDS: CLOPIDOGREL BISULFATE 75 MG TABLET PO (09:27)
[2023-12-22] MEDS: CHOLECALCIFEROL 1,000 UNITS TABLET 1000 UNITS PO (09:27)
[2023-12-22] MEDS: lisinopriL 10 MG TABLET BY MOUTH (09:27)
[2023-12-22] MEDS: ASPIRIN 81 MG ENTERIC TABLET PO (09:27)
[2023-12-22] MEDS: amLODIPine BESYLATE 5 MG TABLET BY MOUTH (09:30)
--- NOTE | 2023-12-22 10:50 | WPDNEUROPN ---
Progress Note: A&P Assessment and Plan (1) Cerebrovascular accident: Code(s): I63.9 - Cerebral infarction, unspecified Status: Acute (2) Hypertension: Code(s): I10 - Essential (primary) hypertension Status: Acute Plan Ms. Lucas is a 73 year old female with a history of HTN, breast cancer s/p lumpectomy, lung cancer s/p radiation, YOBANI, HTN, chemotherapy related neuropathy presenting for left arm and left weakness. She was ultimately found to have a R parietal lobe infarct. Considering etiology as cryptogenic currently. She does have carotid disease but it is <50% bilaterally, so considered significant. She has history of cancer which can cause hypercoagulable state but it seems she is in remission. Surface echo was negative for shunt and with normal EF. - Agree with Aspirin and Plavix x 3 weeks, followed by Aspirin 81mg monotherapy - LDL goal is <70, recommend starting low dose statin - Check HgbA1c - Given cryptogenic nature of stroke, recommend 30 day Holter prior to discharge, will Cardiology follow-up - Outpatient Neurology follow-up in about 2 months Subjective Date/time seen: 12/22/23 10:50 Interval history: Ms. Lucas is a 73 year old female with a history of HTN, breast cancer s/p lumpectomy, lung cancer s/p radiation, YOBANI, HTN, chemotherapy related neuropathy presenting for left arm and left weakness. Patient presented after developing acute onset L sided weakness at her PCPs office. She was taken to [facility] ED where CT head showed no acute changes. By the time she was done with the CT her NIH stroke scale was 0. CTA brain/carotid showed 40% stenosis of the R ICA and 30% stenosis of the L ICA. The ED physician spoke with stroke team at [place] who recommended starting anti-platelet and recommended against thrombolytic. Patient was accepted for transfer but did not have a bed at [facility] so she was admitted to [facility]. She was started on Aspirin 81mg daily and Plavix 75mg daily x 3 weeks, at the recommendation of the [facility] stroke provider. MRI brain done showed acute infarct in the R parietal lobe. She has been fairly normotensive since admission, with her highest BP being up to 149 systolic. Her LDL is 74, A1c was not done. She does not take any antiplatelets or statins at home. Echocardiogram with bubble study showed normal EF with no evidence of shunt. EKG showed sinu rhythm. Patient continues to remain symptoms free. She does not smoke. Review of Systems Review of Systems: All systems reviewed & are unremarkable except as noted in HPI and below Exam Const: General: comfortable and no acute distress HENMT: Mouth: Yes moist mucous membranes Eyes: Pupils: Equal, round and reactive pupils present EOM: EOMs intact bilaterally Resp: Effort & Inspection: normal respiratory effort Skin: General skin exam: normal color Neuro: Other: Pupils equal and reactive bilaterally, EOMI, face symmetric, facial sensation intact, tongue protrudes midline, palate midline. Shoulder shrug normal. Strength 5/5 throughout. Sensation intact throughout. FNF normal bilaterally. Language comprehension and fluency intact. Gait deferred. Extrem: General: normal to inspection Psych: Mental Status: mental status grossly normal Affect: normal affect Objective Data Vital Signs Vital Signs: Vital Signs - 24 hr 12/21/23 12:00 12/21/23 16:00 12/21/23 16:32 Temperature 36.1 C L Pulse Rate 109 H 88 88 Respiratory Rate 16 Blood Pressure 137/61 Pulse Oximetry 95 Oxygen Delivery 12/21/23 19:47 12/21/23 20:00 12/21/23 20:00 Temperature 36.6 C Pulse Rate 92 86 Respiratory Rate 18 Blood Pressure 127/69 Pulse Oximetry 96 Oxygen Delivery Room Air 12/22/23 00:00 12/22/23 01:00 12/22/23 04:00 Temperature 36.4 C Pulse Rate 73 87 75 Respiratory Rate 16 Blood Pressure 121/52 L Pulse Oximetry 94 Oxygen Delivery 12/22/23 06:57 12/22/23 09:30 12/22/23 10:12 [facility]
[2023-12-22 12:21] LABS: Hemoglobin A1C 5.9 % (<5.7)
[2023-12-22] MEDS: AZITHROMYCIN 500 MG/NS 250 ML 500 MG/250 ML BAG 250 MG IVPB (14:30)
--- NOTE | 2023-12-22 15:06 | P.DS_ITS ---
DS: Admitting Diagnosis Discharge Date 12/22/23 Admitting Diagnosis CVA DS: Discharge Diagnosis Discharge Diagnosis (1) Cerebrovascular accident: Code(s): I63.9 - Cerebral infarction, unspecified Status: Acute Assessment and Plan: * 12/21- Left sided weakness at office visit * CT Head: Suggestion of a small acute infarct in the anterior left cerebellar hemisphere surrounding a tiny linear density suspicious for a small thrombosed artery * ED provider consulted BJS- suggested plavix and ASA treatment * Neurology consulted * MRI brain ordered- IMPRESSION: 1. Acute focal multicentric right parietal lobe infarction. No significant mass effect. No hemorrhage. 2: Chronic right c erebellar infarction. 3: Chronic age-related findings.5: Moderate maxillary sinus disease * No deficits presented at time of assessment * 12/22- No deficits presented upon assessment. Patient stated she feels well. She expressed she has spoken with neurology and understand s/s of CVA. * Per Neurology ultimately found to have a R parietal lobe infarct. Considering etiology as cryptogenic currently. She does have carotid disease but it is <50% bilaterally, so considered significant.Surface echo was negative for shunt and with normal EF. * - Agree with Aspirin and Plavix x 3 weeks, followed by Aspirin 81mg monotherapy * - LDL goal is <70, recommend starting low dose statin- initiated Atorvastatin * - HgbA1c- 5.9 * - Given cryptogenic nature of stroke, recommend 30 day Holter prior to discharge, will Cardiology follow-up- Cardiolgy to see and place monitor prior to discharge * - Outpatient Neurology follow-up in about 2 month * Patient can discharge home and follow up with provider accordingly (2) Hypertension: Qualifiers: Hypertension type: unspecified Qualified Code(s): I10 - Essential (primary) hypertension Code(s): I10 - Essential (primary) hypertension Status: Acute Assessment and Plan: * BP stable 149/67 * Resume home medications, Lisinopril, Norvasc * 12/22- Blood pressures controlled with home medications. Continue medications at discharge (3) Abnormal chest x-ray: Code(s): R93.89 - Abnormal findings on diagnostic imaging of other specified body structures Status: Acute Assessment and Plan: * Chest x-ray shows findings of possible pneumonia though could be related to post radiation treatment however given her recent RSV and continued symptoms, we will continue with empiric antibiotics * Rocephin and Azithromycin * RSV positive * Cough present * Sputum culture ordered * 12/22- Patient presents with non productive cough. She was seen in PCP office and treated for these symptoms with abx and PO steriods. She has completed course of both at this time. Denies SOB. * RSV lower respiratory tract infection most likely causative of patients symptoms as she has repeatedly tested positive for this and symptoms have not increase. We will discontinue abx. Patient ok to discharge home. Verbalized understanding of if symptoms worsen, she has increased shortness of breath, fever, sputum production then she should return to hospital. Per office visit notes patient has hx of COPD, which was of note on chest x ray. DS: Summary Hospital Course Reason for hospitalization: CVA Hospital Course: Narrative:HPI Chief Complaint: Left arm and leg weakness. This is a 73-year-old female with hypertension, breast cancer status post lumpectomy, and lung cancer status post radiation who presented to the emergency department for evaluation of left arm and
--- NOTE | 2023-12-22 15:06 | PM.DS ---
DS: Admitting Diagnosis Discharge Date 12/22/23 Admitting Diagnosis CVA DS: Discharge Diagnosis Discharge Diagnosis (1) Cerebrovascular accident: Code(s): I63.9 - Cerebral infarction, unspecified Status: Acute Assessment and Plan: 12/21- Left sided weakness at office visit CT Head: Suggestion of a small acute infarct in the anterior left cerebellar hemisphere surrounding a tiny linear density suspicious for a small thrombosed artery ED provider consulted BJS- suggested plavix and ASA treatment Neurology consulted MRI brain ordered- IMPRESSION: 1. Acute focal multicentric right parietal lobe infarction. No significant mass effect. No hemorrhage. 2: Chronic right cerebellar infarction. 3: Chronic age-related findings.5: Moderate maxillary sinus disease No deficits presented at time of assessment 12/22- No deficits presented upon assessment. Patient stated she feels well. She expressed she has spoken with neurology and understand s/s of CVA. Per Neurology ultimately found to have a R parietal lobe infarct. Considering etiology as cryptogenic currently. She does have carotid disease but it is <50% bilaterally, so considered significant.Surface echo was negative for shunt and with normal EF. - Agree with Aspirin and Plavix x 3 weeks, followed by Aspirin 81mg monotherapy - LDL goal is <70, recommend starting low dose statin- initiated Atorvastatin - HgbA1c- 5.9 - Given cryptogenic nature of stroke, recommend 30 day Holter prior to discharge, will Cardiology follow-up- Cardiolgy to see and place monitor prior to discharge - Outpatient Neurology follow-up in about 2 month Patient can discharge home and follow up with provider accordingly (2) Hypertension: Qualifiers: Hypertension type: unspecified Qualified Code(s): I10 - Essential (primary) hypertension Code(s): I10 - Essential (primary) hypertension Status: Acute Assessment and Plan: BP stable 149/67 Resume home medications, Lisinopril, Norvasc 12/22- Blood pressures controlled with home medications. Continue medications at discharge (3) Abnormal chest x-ray: Code(s): R93.89 - Abnormal findings on diagnostic imaging of other specified body structures Status: Acute Assessment and Plan: Chest x-ray shows findings of possible pneumonia though could be related to post radiation treatment however given her recent RSV and continued symptoms, we will continue with empiric antibiotics Rocephin and Azithromycin RSV positive Cough present Sputum culture ordered 12/22- Patient presents with non productive cough. She was seen in PCP office and treated for these symptoms with abx and PO steriods. She has completed course of both at this time. Denies SOB. RSV lower respiratory tract infection most likely causative of patients symptoms as she has repeatedly tested positive for this and symptoms have not increase. We will discontinue abx. Patient ok to discharge home. Verbalized understanding of if symptoms worsen, she has increased shortness of breath, fever, sputum production then she should return to hospital. Per office visit notes patient has hx of COPD, which was of note on chest x ray. DS: Summary Hospital Course Reason for hospitalization: CVA Hospital Course: Narrative:HPI Chief Complaint: Left arm and leg weakness. This is a 73-year-old female with hypertension, breast cancer status post lumpectomy, and lung cancer status post radiation who presented to the emergency department for evaluation of left arm and leg weakness. The patient provides the following history. She was at her primary care provider's office yesterday morning (follow-up visit after having tested positive for RSV last week) when she suddenly developed weakness and numbness in the left arm and leg. She was brought to CT scan immediately on arrival to the ER and at the time she was seen by the ED physician, her NIH stroke scale was 0. CTA of
[2023-12-22] MEDS: traMADol HCL (*CRX) 50 MG TABLET PO (20:59)
[2023-12-22] MEDS: traZODone HCL 50 MG TABLET BY MOUTH (21:00)
[2023-12-23] VITALS: PULSE 77
[2023-12-23 03:33] VITALS: BP 132/66; PULSE 79; RESP 17; TEMP 36.7; O2SAT 95
[2023-12-23 04:00] VITALS: PULSE 62
[2023-12-23 05:09] LABS: Hematocrit 36.7 % (37.0-47.0); Hemoglobin 11.8 g/dL (12.0-15.0); Mean Corpuscular HGB Conc 32.2 g/dl (32-36); Mean Corpuscular Hemoglobin 30.6 pg (26-34); Mean Corpuscular Volume 95.3 fl (80-100); Mean Platelet Volume 9.3 fl (7.4-10.4); Platelet Count Result 317 k/mm3 (150-375); Red Blood Count 3.85 M/mm3 (4.2-5.4); Red Cell Distribution Width 13.4 % (11.5-14.5); White Blood Count 8.8 K/mm3 (4.5-10.0)
[2023-12-23 05:20] LABS: Alanine Aminotransferase 15 U/L (6-35); Albumin Level 3.6 g/dL (3.5-5.1); Alkaline Phosphatase 80 U/L (38-126); Anion Gap 3 mmol/L (8-16); Aspartate Amino Transferase 18 U/L (14-36); Bilirubin,Total 0.5 mg/dL (0.2-1.3); Blood Urea Nitrogen 25 mg/dL (7-17); Calcium 9.4 mg/dL (8.4-10.2); Carbon Dioxide 27 mmol/L (22-30); Chloride 104 mmol/L (98-107); Estimated CRCL calculation 55 ml/min; Estimated Glomerular Filt Rate > 60; Glucose 96 mg/dL (65-110); Potassium 4.1 mmol/L (3.4-5.0); Sodium 134 mmol/L (137-145)
[2023-12-23 08:00] VITALS: PULSE 76
[2023-12-23] MEDS: amLODIPine BESYLATE 5 MG TABLET BY MOUTH (08:35)
[2023-12-23] MEDS: ASPIRIN 81 MG ENTERIC TABLET PO (08:35)
[2023-12-23] MEDS: ATORVASTATIN 40 MG TABLET 80 MG PO (08:35)
[2023-12-23] MEDS: predniSONE 10 MG TABLET BY MOUTH (08:35)
[2023-12-23] MEDS: CYANOCOBALAMIN 1,000 MCG TABLET 1000 MCG PO (08:36)
[2023-12-23] MEDS: CHOLECALCIFEROL 1,000 UNITS TABLET 1000 UNITS PO (08:36)
[2023-12-23] MEDS: lisinopriL 10 MG TABLET BY MOUTH (08:36)
[2023-12-23] MEDS: CLOPIDOGREL BISULFATE 75 MG TABLET PO (08:36)
[2023-12-23] MEDS: CALCIUM CARBONATE (TUMS) 500 MG (200 MG ELEMENTAL) PO (08:41)
[2023-12-23 11:38] LABS: Mycoplasma IgM Antibody Titer 50 U/mL (<770)
[2023-12-23 12:00] VITALS: PULSE 87
--- NOTE | 2023-12-23 13:04 | PM.CNCAR ---
Assessment and Plan Assessment and plan (1) Cerebrovascular accident: Code(s): I63.9 - Cerebral infarction, unspecified Status: Acute Assessment and Plan: Presented with left arm weakness and has been found to have a right parietal infarct. No known history of atrial arrhythmias and none seen on EKG or telemetry. Echo showed normal LV systolic function with grade I diastolic dysfunction and no evidence of PFO with bubble study. Neurology has recommended outpatient telemetry monitoring, which is appropriate. Could also consider loop recorder placement but will await results of outpatient telemetry. Order placed for 30 day conveyor monitor. History of Present Illness History of Present Illness Consult date/time: 12/23/23 13:04 Requesting physician: Catie Grier APRN Consult reason: Other (holter) Reason For Visit: cva Narrative: Ms. Medina Lucas is a 73 year old female with history of HTN, breast cancer s/p lumpectomy, lung cancer s/p radiation, YOBANI, HTN, chemotherapy related neuropathy presenting for left arm and left weakness that occurred during an appointment with her primary care doctor. She was ultimately found to have a right parietal lobe infarct. At this point she is free from any symptoms. She denies any history of atrial fibrillation or any palpitations. Denies any other cardiac history. I am seeing her at the request of Neurology for holter monitor placement Review of Systems Review of Systems: All systems reviewed & are unremarkable except as noted in HPI and below PMFSH Past Medical History Medical History Adenomatous colon polyp Anxiety Cancer of right breast (2015) Status post lumpectomy and chemoradiation. 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 Code status: Full code. Smoking packs per day: 0.5 Smoking cigarettes per day: 10.0 Years smoked: 20 Smoking pack-years: 10.00 Smoking status: Former smoker Second hand tobacco smoke exposure: Yes Additional smoking assessment comments: Pt only smokes a pack a week. Alcohol intake: current Alcohol use details: Occasional alcohol use in moderation. Substance use: never Substance use type: does not use Do You Feel Safe in your Home?: Yes Lack of Transportation: No Lack of Food: Never True Current Housing: I Have Housing Concerned About Future Housing: No Difficulty Paying Gas/Electric Bills: No Difficulty Paying for Meds: No Currently Unemployed: YES Education: Don't Know Difficulty w/ Childcare or Family Care: No Living arrangements: with family Occupation/Education: retired Spiritual care concerns: No Meds Home Medications and Allergies Home Medications Medication Instructions Recorded Confirmed Type cholecalciferol (vitamin D3) 1 tab-cap PO DAILY 10/13/21 12/20/23 History mecobalamin (vitamin B12) 1 tablet PO DAILY 10/13/21 12/20/23 History trazodone 100 mg tablet See Rx Instructions .Route 11/26/22 12/20/23 Rx .COMPLEX #90 tabs tramadol 50 mg tablet 50 mg PO Q6H PRN pain #60 tabs 12/19/23 12/20/23 Rx ondansetron 4 mg disinteg
[2023-12-24 07:29] LABS: Pneumococcal Antigen Urine Not Detected (Not Detected)
[2023-12-25 08:25] LABS: Legionella pneumophila Ag Ur Not Detected (Not Detected)
== END 2023-12-23 14:06 | disposition home or self-care (01) | DRG 65 ==
LOC: ANHED 12-20 12:17 → ANH2MED 12-20 18:14
PROVIDERS: Family Medicine; Physician Assistant; Admitting Provider Internal Medicine; Emergency Provider Emergency Medicine; PCP Family Medicine; Visit Provider Nurse Practitioner Family
DX: I63.9 Cerebral infarction, unspecified (principal); C34.90 Malignant neoplasm of unspecified part of unspecified bronchus or lung; G81.94 Hemiplegia, unspecified affecting left nondominant side; B97.4 Respiratory syncytial virus as the cause of diseases classified elsewhere; G62.9 Polyneuropathy, unspecified; I10 Essential (primary) hypertension; J22 Unspecified acute lower respiratory infection; M54.9 Dorsalgia, unspecified; Z85.3 Personal history of malignant neoplasm of breast; Z92.3 Personal history of irradiation; Z92.21 Personal history of antineoplastic chemotherapy; Z87.891 Personal history of nicotine dependence; Z20.822 Contact with and (suspected) exposure to COVID-19
CPT/HCPCS: 36415; 70450; 70496; 70498; 70553; 71045; 80048; 80053; 80061; 81003; 82948; 83036; 83735; 84484; 85025; 85027; 85610; 85730; 86738; 87449; 87637; 87899; 93005; 93306; 93880; 94640; 96365; 96366; 96367; 96375; 96376; 99285; A9270; A9577; C9113; G0378; J0456; J0696; J2405; J7512; Q9967

== ENCOUNTER 2024-01-16 15:47 | Emergency (ER) | payer OTHER, SELFPAY ==
--- NOTE | ~2024-01-16 | CT_ITS ---
EXAMINATION: CT abdomen pelvis w con DATE: 01/16/2024 16:47 INDICATION: Abdominal pain, flank pain, constipation for 6 days TECHNIQUE: Computed tomography (CT) of the abdomen and pelvis was performed with 100 CC Omnipaque 350 intravenous contrast. Automated exposure control and iterative reconstruction technique were employe d. Exam dose: 371.51 mGy-cm total exam DLP. COMPARISON: None. FINDINGS: There is an approximately 8.9 x 11.9 mm right lower lung mass in the paraspinal area, incre ased in size from approximately 4.2 x 4.3 mm on 06/07/2023, making this very suspicious for malignancy. Prominent emphysematous changes are noted in addition to peripheral septal soft tissue thickening and honeycombing, suggesting usual interstitial pneumonia interstitial fibrosis. Mild cardiomegaly. No pericardial or pleural effusion. The gallbladder is present. No bile duct or pancreatic duct dilatation. No hepatic, splenic, pancreat ic, and adrenal or renal space-occupying mass lesion is detected. Focal arterial calcification or small calculus of the upper pole left kidney. No urinary tract calcul us or hydroureteronephrosis is noted otherwise. There is extensive calcification of the abdominal aorta, prominent calcification of the superior mese nteric artery, renal origins of the arteries, as well as prominent iliac and femoral artery calcifica tions. No abdominal aortic aneurysm. No intraperitoneal or retroperitoneal or pelvic mass lesion or a denopathy or ascites. No evidence of appendicitis. No bowel obstruction, bowel wall thickening, pneumatosis or intraperiton eal free air is detected. Atrophic uterus. The urinary bladder is unremarkable. Chronic moderate anterior wedge compression fracture deformity of T12, unchanged since 06/07/2023. Grad e 1 anterolisthesis at L4-5 due to degenerative change at the apophyseal joints. Diffuse osteopenia. IMPRESSION: Rapidly enlarging 8.9 x 11.9 mm right lower lobe lung mass, suspicious for primary or me tastatic pulmonary malignancy Emphysema Usual interstitial pneumonia chronic interstitial pulmonary fibrosis Mild cardiomegaly Atherosclerosis Chronic T12 compression fracture Reviewed, dictated and finalized at [facility]. Reviewed, dictated and finalized at [facility]. IMPRESSION: Rapidly enlarging 8.9 x 11.9 mm right lower lobe lung mass, suspic ious for primary or metastatic pulmonary malignancy Emphysema Usual interstitial pneumonia chronic interstitial pulmonary fibrosis Mild cardiomegaly Atherosclerosis Chronic T12 compression fracture
[2024-01-16 16:03] VITALS: BP 139/63; PULSE 95; RESP 18; TEMP 36.8; O2SAT 96
[2024-01-16 16:31] LABS: Basophils Percent Auto 0.5 % (0.2-1.2); Eosinophils Absolute Auto 0.3 K/mm3 (0-0.3); Eosinophils Percent Auto 3.8 % (0-4.4); Hematocrit 39.8 % (37.0-47.0); Hemoglobin 13.1 g/dL (12.0-15.0); Immature Granulocyte Absolute 0.02 K/mm3 (0.00-0.031); Immature Granulocyte Percent A 0.2 % (0-0.5); Lymphocytes Absolute Auto 0.93 K/mm3 (0.9-3.2); Lymphocytes Percent Auto 10.9 % (18.3-44.2); Mean Corpuscular HGB Conc 32.9 g/dl (32-36); Mean Corpuscular Volume 94.3 fl (80-100); Mean Platelet Volume 9.5 fl (7.4-10.4); Monocytes Absolute Auto 0.8 K/mm3 (0.1-0.6); Monocytes Percent Auto 9.3 % (2.6-8.5); Neutrophils Absolute Auto 6.4 K/mm3 (1.3-6.7); Neutrophils Percent Auto 75.3 % (45.5-73.1); Platelet Count Result 272 k/mm3 (150-375); Red Blood Count 4.22 M/mm3 (4.2-5.4); Red Cell Distribution Width 14.1 % (11.5-14.5); White Blood Count 8.5 K/mm3 (4.5-10.0)
[2024-01-16 16:41] LABS: Alanine Aminotransferase 48 U/L (6-35); Albumin Level 4.5 g/dL (3.5-5.1); Alkaline Phosphatase 115 U/L (38-126); Anion Gap 8 mmol/L (8-16); Aspartate Amino Transferase 49 U/L (14-36); Bilirubin,Total 0.4 mg/dL (0.2-1.3); Blood Urea Nitrogen 28 mg/dL (7-17); Calcium 9.7 mg/dL (8.4-10.2); Carbon Dioxide 24 mmol/L (22-30); Chloride 108 mmol/L (98-107); Estimated CRCL calculation 38 ml/min; Estimated Glomerular Filt Rate 54; Glucose 109 mg/dL (65-110); Lipase 95 U/L (23-300); Potassium 4.1 mmol/L (3.4-5.0); Sodium 140 mmol/L (137-145)
--- NOTE | 2024-01-16 17:05 | ED.GENADULT ---
HPI - General Adult General Chief complaint: Abdominal Pain <Trixie Fermin, [employer] - Last Filed: 01/16/24 17:09> Stated complaint: no bm in 6days <Trixie Fermin [employer] - Last Filed: 01/16/24 17:09> Time Seen by Provider: 01/16/24 17:06 <Trixie Fermin, [employer] ANN[employer] - Last Filed: 01/16/24 17:09> Focused HPI: Medina Lucas is a 73 y/o female who presents with reports of not having a BM in 6 days and having severe lower back pain. She states that she has tried taking Linzess four of them / she tried an enema at home 3 days ago and stool softeners. She states she hasn't been able to pass gas today. GENERAL: well-nourished, and in no acute distress. HEAD: Normocephalic, atraumatic. CHEST: Clear to auscultation. ?No respiratory distress. HEART: Regular rate and rhythm.? NEURO: ?Alert and oriented x3. Patient screened in triage and initial orders placed.? ?Additional care and disposition to be based upon?diagnostic testing and treatment. <Trixie Abrams February, [employer] ANN[employer] - Last Filed: 01/16/24 17:09> History of Present Illness HPI narrative: 73-year-old female presenting with abdominal pain. States that she has not had a bowel movement in 6-7 days. States she has had a couple episodes of vomiting. States that she has never had constipation problems in the past. States that she has been taking tramadol but stopped when she saw that it can cause constipation. No further complaints. <Kristin Pena MD - Last Filed: 01/20/24 21:12> Related Data Home medications: Home Medications Medication Instructions Recorded Confirmed cholecalciferol (vitamin D3) 1 tab-cap PO DAILY 10/13/21 01/12/24 mecobalamin (vitamin B12) 1 tablet PO DAILY 10/13/21 01/12/24 <rTixie Fermin, [employer] ANN[employer]ER - Last Filed: 01/16/24 17:09> Allergies/adverse reactions: Allergies Allergy/AdvReac Type Severity Reaction Status Date / Time codeine AdvReac Mild NAUSEA/VOMI Verified 01/12/24 07:30 TING <Trixie Fermin, [employer] - Last Filed: 01/16/24 17:09> Review of Systems Review of Systems: All systems reviewed & are unremarkable except as noted in HPI and below <Kristin Pena MD - Last Filed: 01/20/24 21:12> [facility] Past Medical History Medical History: Medical History Abdominal bloating Acute suppurative otitis media of left ear without spontaneous rupture of ear drum Adenomatous colon polyp Age-related osteoporosis without current pathological fracture Anxiety Breast asymmetry Breast microcalcifications Breast nodule Cancer of right breast (2015) Status post lumpectomy and chemoradiation. Chronic fatigue Ductal carcinoma in situ (DCIS) of right breast Dysfunction of both eustachian tubes Essential (primary) hypertension Fibrocystic disease of left breast Hx of breast cancer Hypertension Iron deficiency anemia due to chronic blood loss Left arm numbness Left knee DJD Living will, counseling/discussion Malignant neoplasm of areola of right breast in female Mass of both breasts on mammogram Mental status alteration Neuropathy associated with cancer Osteoporosis Radiation dermatitis Secondary hypertension Serrated adenoma of colon Sessile colonic polyp Smoker Tobacco abuse Unspecified fracture of left wrist and hand, subsequent encounter for fracture with routine healing Unspecified lump in the left breast, unspecified quadrant Use of tamoxifen (Nolvadex) Vitamin D deficiency Wears glasses <Trixie Abrams February, - Last Filed: 01/16/24 17:09> Surgical History Surgical History: Surgical History History of colonoscopy with polypectomy History of lumpectomy of right breast (2015) History of tubal ligation <Trixie Abrams February,N - Last Filed: 01/16/24 17:09> Family History Family History: Family History Mother Patient's mother is in good healt
[2024-01-16 17:59] VITALS: BP 128/53; PULSE 84; RESP 15; O2SAT 96
[2024-01-16 18:38] VITALS: BP 120/53; PULSE 92; RESP 15; O2SAT 98
[2024-01-16 18:56] LABS: Appearance Urine Clear (Clear); Bacteria Urine None Seen /hpf; Bilirubin Urine Negative (Negative); Blood Urine Trace (Negative); Color Urine Yellow (Yellow); Glucose Urine UA Negative (Negative); Ketones Urine Negative (Negative); Leukocyte Esterase Ur Negative LEU/UL (Negative); Nitrate Urine Negative (Negative); Non Pathogenic Casts 0-2; Protein Urine Trace mg/dL (Negative); RBC Urine 0-2 /hpf (0-2); Squamous Epithelial Cell Urine Occasional /hpf (Few); Urobilinogen Urine 0.2 mg/dL (<2.0); WBC Urine 0-5 /hpf (0-3)
[2024-01-16 18:59] LABS: Add Urine Microscopic? YES; Specific Grav Ur 1.078 (1.001-1.035)
[2024-01-16] MEDS: METHYLNALTREXONE 12 MG/0.6 ML VIAL SUB-Q (19:20)
[2024-01-16 19:56] VITALS: BP 134/92; PULSE 82; RESP 15; O2SAT 99
[2024-01-16 22:16] VITALS: BP 164/88; PULSE 75; RESP 15; TEMP 36.8; O2SAT 99
== END 2024-01-16 22:17 | disposition home or self-care (01) ==
PROVIDERS: Nurse Practitioner Family; Emergency Provider Emergency Medicine; PCP Family Medicine
DX: K59.00 Constipation, unspecified (principal); R10.9 Unspecified abdominal pain; R91.8 Other nonspecific abnormal finding of lung field; I10 Essential (primary) hypertension; N60.12 Diffuse cystic mastopathy of left breast; E55.9 Vitamin D deficiency, unspecified; M17.12 Unilateral primary osteoarthritis, left knee; M81.0 Age-related osteoporosis without current pathological fracture; F17.210 Nicotine dependence, cigarettes, uncomplicated; Z85.3 Personal history of malignant neoplasm of breast; Z92.3 Personal history of irradiation; Z92.21 Personal history of antineoplastic chemotherapy; Z86.010 Personal history of colon polyps; Z79.82 Long term (current) use of aspirin; J43.9 Emphysema, unspecified; J84.10 Pulmonary fibrosis, unspecified; J84.112 Idiopathic pulmonary fibrosis; I70.0 Atherosclerosis of aorta; M48.54XA Collapsed vertebra, not elsewhere classified, thoracic region, initial encounter for fracture
CPT/HCPCS: 36415; 74177; 80053; 83690; 85025; 96372; 99284; J2212; Q9967

== ENCOUNTER 2024-03-01 09:16 | Outpatient (CLI) | payer OTHER, SELFPAY ==
[2024-03-01 10:20] LABS: Alanine Aminotransferase 15 U/L (6-35); Albumin Level 4.5 g/dL (3.5-5.1); Alkaline Phosphatase 87 U/L (38-126); Aspartate Amino Transferase 21 U/L (14-36); Bilirubin,Total 0.4 mg/dL (0.2-1.3); Cholesterol 219 mg/dL (0-200); HDL Direct 74 mg/dL; Triglycerides 165 mg/dL (<150)
[2024-03-01 10:32] LABS: LDL Cholesterol Direct 113 mg/dL
== END 2024-03-01 09:17 | disposition home or self-care (01) ==
LOC: ANHLAB 09:19
PROVIDERS: PCP Family Medicine; Visit Provider Psychiatry & Neurology Neurology
DX: C78.00 Secondary malignant neoplasm of unspecified lung (principal); I10 Essential (primary) hypertension; I63.9 Cerebral infarction, unspecified
CPT/HCPCS: 36415; 80061; 80076

== ENCOUNTER 2024-08-17 17:12 | Emergency (ER) | payer OTHER, SELFPAY ==
--- NOTE | ~2024-08-17 | CT_ITS ---
CT abdomen pelvis w con Ordering provider: Kristin Pena MD History: 73 years Female with . abdominal pain, no BM, nausea . Comparison: January 16, 2024 Technique: CT abdomen and pelvis with IV and without oral contrast. Automated exposure control and it erative reconstruction technique were employed. The dose-length product was 230.35 mGy-cm. 100 mL Omn ipaque 350 was given IV. Findings: VISUALIZED LOWER CHEST: Pleural-based Soft tissue density seen in the right lower lobe which may su nyasia a mass. The mass has increased compared to previous study. Follow-up and further evaluation advi sed. This mass measures 2.2 x 2.7 cm. Underlying fibrotic changes of the lungs are noted. UPPER ABDOMINAL ORGANS: Liver: Hepatomegaly with multiple hypodensities suggestive of metastatic lesions. The largest seen in the segment #7/8 which measures 6.5 x 5.33 with a necrotic center which measures 3.3 x 2.1 Gallbladder: Normal. Spleen: Normal. Stomach/duodenum: Slightly thickened wall of the stomach. Clinical correlation advised. Pancreas: Slightly prominent pancreatic duct. Adrenals: Left adrenal adenoma which may be metastatic. This measures 1.4 cm. Kidneys: Normal. PELVIC ORGANS: The bladder is normal. BOWEL AND MESENTERY: Colon: No evidence of diverticulitis. Multiple areas of narrowing most likely spastic. Colonoscopy ad vised. Fecal material is loaded in the colon. Normal appendix. Small Bowel: Normal. No obstruction. Peritoneum/mesentery: No free air or free fluid. No mesenteric lymphadenopathy. RETROPERITONEUM: Mild atheromatous disease of the abdominal aorta. Collateral vessels are seen in th e left paraspinal area. No retroperitoneal lymphadenopathy. MUSCULOSKELETAL: Superficial soft tissues: The superficial soft tissues are normal. Bones: Compression fracture of T11 and T12 which is most likely acute in T11 and chronic in T12. Clin ical correlation advised. Minimal atherosclerotic changes are seen in both vertebrae. Age appropriate degenerative changes of the spine. Small sclerotic area in the right iliac bone follow-up advised. IMPRESSION: 1. Mass in the right lower lobe. Further evaluation advised. 2. Multiple metastatic lesions in the liver with necrotic centers. Further evaluation advised. 3. Hepatomegaly. 4. Multiple areas of narrowing in the colon most likely spastic. Colonoscopy is advised. 5. Slightly prominent pancreatic duct. Follow-up advised. Acute compression fracture of T11 and photograph editor ajay of T12. MRI evaluation advised. 6. Collateral vessels seen in the left paraspinal area. Reviewed, dictated and finalized at [facility]. IMPRESSION: 1. Mass in the right lower lobe. Further evaluation advised. 2. Multiple metastatic lesions in the liver with necrotic centers. Further tawny luation advised. 3. Hepatomegaly. 4. Multiple areas of narrowing in the colon most likely spastic. Colonoscopy i s advised. 5. Slightly prominent pancreatic duct. Follow-up advised. Acute compression fr acture of T11 and chronic of T12. MRI evaluation advised. 6. Collateral vessels seen in the left paraspinal area.
[2024-08-17 17:15] VITALS: BP 114/68; PULSE 125; RESP 14; TEMP 36.4; O2SAT 95
[2024-08-17 18:24] LABS: Basophils Percent Auto 0.2 % (0.2-1.2); Hematocrit 31.7 % (37.0-47.0); Immature Granulocyte Absolute 0.21 K/mm3 (0.00-0.031); Immature Granulocyte Percent A 1.7 % (0-0.5); Lymphocytes Absolute Auto 0.65 K/mm3 (0.9-3.2); Lymphocytes Percent Auto 5.3 % (18.3-44.2); Mean Corpuscular HGB Conc 34.7 g/dl (32-36); Mean Corpuscular Hemoglobin 33.1 pg (26-34); Mean Corpuscular Volume 95.5 fl (80-100); Mean Platelet Volume 9.7 fl (7.4-10.4); Monocytes Absolute Auto 1.5 K/mm3 (0.1-0.6); Monocytes Percent Auto 12.5 % (2.6-8.5); Neutrophils Absolute Auto 9.9 K/mm3 (1.3-6.7); Neutrophils Percent Auto 80.3 % (45.5-73.1); Platelet Count Result 327 k/mm3 (150-375); Red Blood Count 3.32 M/mm3 (4.2-5.4); White Blood Count 12.3 K/mm3 (4.5-10.0)
[2024-08-17 18:35] VITALS: BP 134/65; PULSE 113; RESP 34; TEMP 36.3; O2SAT 97
[2024-08-17 18:35] LABS: Alanine Aminotransferase 96 U/L (6-35); Albumin Level 4.3 g/dL (3.5-5.1); Alkaline Phosphatase 205 U/L (38-126); Anion Gap 14 mmol/L (4-12); Aspartate Amino Transferase 214 U/L (14-36); Bilirubin,Total 0.9 mg/dL (0.2-1.3); Blood Urea Nitrogen 23 mg/dL (7-17); Calcium 10.3 mg/dL (8.4-10.2); Carbon Dioxide 20 mmol/L (22-30); Chloride 95 mmol/L (98-107); Estimated CRCL calculation 33 ml/min; Estimated Glomerular Filt Rate 49; Glucose 110 mg/dL (65-110); Lipase 397 U/L (23-300); Potassium 4.8 mmol/L (3.4-5.0); Sodium 129 mmol/L (137-145)
--- NOTE | 2024-08-17 18:56 | ED.NAVMDI ---
HPI - Nausea/Vomiting/Diarrhea General Chief complaint: Nausea/Vomiting/Diarrhea Stated complaint: N/V on chemo sent by [facility] Time Seen by Provider: 08/17/24 18:06 History of Present Illness HPI Narrative: 73-year-old female with a history of metastatic liver cancer on chemotherapy presenting with abdominal pain and nausea and vomiting. States that for the last 3 days she has had upper abdominal pain associated with decreased appetite and persistent nausea. She spoke with her oncologist who recommended that she come to the ER for further evaluation. She complains that she has also not had a bowel movement for the last several days. She denies any other complaints. States that she would really like to go home. Related Data Home Medications Medication Instructions Recorded Confirmed cholecalciferol (vitamin D3) 1 tab-cap PO DAILY 10/13/21 03/01/24 mecobalamin (vitamin B12) 1 tablet PO DAILY 10/13/21 03/01/24 Allergies Allergy/AdvReac Type Severity Reaction Status Date / Time codeine AdvReac Mild NAUSEA/VOMI Verified 04/05/24 08:27 TING Review of Systems Review of Systems: All systems reviewed & are unremarkable except as noted in HPI and below PMFSH Past Medical History Medical History Abdominal bloating Acute suppurative otitis media of left ear without spontaneous rupture of ear drum Adenomatous colon polyp Age-related osteoporosis without current pathological fracture Anxiety Breast asymmetry Breast microcalcifications Breast nodule Cancer of right breast (2016) Status post lumpectomy and chemoradiation. Chronic fatigue Ductal carcinoma in situ (DCIS) of right breast Dysfunction of both eustachian tubes Essential (primary) hypertension Fibrocystic disease of left breast Hx of breast cancer Hypertension Iron deficiency anemia due to chronic blood loss Left arm numbness Left knee DJD Living will, counseling/discussion Malignant neoplasm of areola of right breast in female Mass of both breasts on mammogram Mental status alteration Neuropathy associated with cancer Osteoporosis Radiation dermatitis Secondary hypertension Serrated adenoma of colon Sessile colonic polyp Smoker Tobacco abuse Unspecified fracture of left wrist and hand, subsequent encounter for fracture with routine healing Unspecified lump in the left breast, unspecified quadrant Use of tamoxifen (Nolvadex) Vitamin D deficiency Wears glasses Surgical History Surgical History History of colonoscopy with polypectomy History of lumpectomy of right breast (2016) History of tubal ligation Family History Family History Mother Patient's mother is in good health Hypertension Family history of malignant neoplasm of brain Sibling Patient's sister is in good health Patient's brother is in good health Family history of alcoholism, Onset Age: 53 Family history of dementia Family history of throat cancer Social History Social History Social History: Surrogate medical decision maker: Martinez Lucas, spouse. Code status: Full code. Smoking packs per day: 0.5 Smoking cigarettes per day: 10.0 Years smoked: 20 Smoking pack-years: 10.00 Smoking status: Current some day smoker Second hand tobacco smoke exposure: Yes Additional smoking assessment comments: Pt only smokes a pack a week. Alcohol intake: current Alcohol use details: Occasional alcohol use in moderation. Substance use: never Substance use type: does not use Do You Feel Safe in your Home?: Yes Lack of Transportation: No Lack of Food: Never True Current Housing: I Have Housing Concerned About Future Housing: No Difficulty Paying Gas/Electric Bills: No Difficulty Paying for Meds: No Currently Unemployed: YE
[2024-08-17] MEDS: SODIUM CHLORIDE 0.9% IV 1,000 ML 999 ML IV CONT (19:12)
[2024-08-17] MEDS: ONDANSETRON INJ 4 MG/2 ML VIAL IV PUSH (19:12)
[2024-08-17] MEDS: HYDROmorphone HCL INJ (*CRX) 1 MG/ML SYR 0.5 MG IV PUSH ×2 (19:12→20:56)
--- NOTE | 2024-08-17 20:27 | PC.NURSE ---
Patient has been asked multiple times by staff members if she able to provide a urine sample. Patient states she is unable to but will let us know if able.
[2024-08-17 20:31] VITALS: BP 106/53; PULSE 102; RESP 15; O2SAT 99
--- NOTE | 2024-08-17 20:52 | PC.NURSE ---
Patient states that the pain is starting to come back again. MD Pnea verbally notified by this RN. See new orders
[2024-08-17 21:10] LABS: Add Urine Microscopic? YES; Appearance Urine Clear (Clear); Bacteria Urine None Seen /hpf; Bilirubin Urine Negative (Negative); Blood Urine Negative (Negative); Color Urine Yellow (Yellow); Glucose Urine UA Negative (Negative); Hyaline Casts Urine Present /lpf; Ketones Urine 1+ mg/dL (Negative); Leukocyte Esterase Ur Negative LEU/UL (Negative); Need Manual Microscopic Reviewed; Nitrate Urine Negative (Negative); Protein Urine 1+ mg/dL (Negative); RBC Urine 0-2 /hpf (0-2); Specific Grav Ur > 1.045 (1.001-1.035); Squamous Epithelial Cell Urine Few /hpf (Few); WBC Urine 0-5 /hpf (0-3)
--- NOTE | 2024-08-17 21:10 | PC.NURSE ---
Called CT to get update on results for abd/pel CT. laboratory development technician states radiologist has not read scan yet.
[2024-08-17 22:24] VITALS: BP 108/61; PULSE 118; RESP 26; TEMP 36.4; O2SAT 100
[2024-08-17] MEDS: oxyCODONE/ACETAMINOPHEN (*CRX) 5-325 MG TABLET 1 TABLET PO (22:24)
== END 2024-08-17 22:35 | disposition home or self-care (01) ==
PROVIDERS: Emergency Provider Emergency Medicine; PCP Family Medicine
DX: R11.2 Nausea with vomiting, unspecified (principal); E86.0 Dehydration; R10.9 Unspecified abdominal pain; C78.7 Secondary malignant neoplasm of liver and intrahepatic bile duct; M48.54XA Collapsed vertebra, not elsewhere classified, thoracic region, initial encounter for fracture; R91.8 Other nonspecific abnormal finding of lung field; I10 Essential (primary) hypertension; E55.9 Vitamin D deficiency, unspecified; M17.12 Unilateral primary osteoarthritis, left knee; M81.0 Age-related osteoporosis without current pathological fracture; F17.210 Nicotine dependence, cigarettes, uncomplicated; Z85.3 Personal history of malignant neoplasm of breast; Z92.3 Personal history of irradiation; Z92.21 Personal history of antineoplastic chemotherapy; Z86.0101 Personal history of adenomatous and serrated colon polyps; Z79.60 Long term (current) use of unspecified immunomodulators and immunosuppressants; Z79.82 Long term (current) use of aspirin; Z79.02 Long term (current) use of antithrombotics/antiplatelets; Z79.899 Other long term (current) drug therapy; R93.3 Abnormal findings on diagnostic imaging of other parts of digestive tract; R93.2 Abnormal findings on diagnostic imaging of liver and biliary tract
CPT/HCPCS: 36415; 74177; 80053; 81001; 83690; 85025; 96361; 96374; 96375; 96376; 99284; A9270; J1171; J2405; J7030; Q9967